=== PATIENT | male | born 1935 | race Caucasian/White ===

== ENCOUNTER 2016-07-25 10:03 | Emergency (ER) | payer MEDICARE ==
[~2016-07-25] VITALS: Ht 182.9 cm; Wt 117.9 kg
[~2016-07-25 10:03] MED LIST: ACET325T9 PO; ASPI-171 PO; DULA1.5P SQ; ESCI10TA PO; FAMO20TA5 PO; METO25TA9 PO; METR500T4 PO; SIMV20TA3 PO; TAMS0.4C2 PO; TRAM100T PO; TRAM50TA PO; VIT1TABL71 PO
[2016-07-25] MEDS ORDERED: TETANUS AND DIPHTHERIA TOX/PF 0.5 ML DISP.SYRIN. VAX IM ONE (11:00)
--- NOTE | 2016-07-25 11:23 | ED.ADGEN ---
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 No loss of consciousness reported. Fall was mechanical per report. Upon arrival, patient is at his baseline mental status, which is alert, engaged , but confused. Patient is following commands. C-collar placed in the emergency department due to an ability to provide history and reliable examination, and presence of distracting injuries on the patient's left forearm, where he has multiple contusions and skin tears noted, some of which are old. Patient also has contusion noted to the right shoulder. Patient is moving all extremities. Noted to have a large contusion with abrasion left lateral for head. Review of Systems Review of Systems Constitutional: Denies fever or chills. [] Eyes: Denies change in visual acuity. [] HENT: Denies nasal congestion or sore throat. [] Respiratory: Denies cough or shortness of breath. [] Cardiovascular: Denies chest pain or edema. [] GI: Denies abdominal pain, nausea, vomiting, bloody stools or diarrhea. [] : Denies dysuria. [] Musculoskeletal: Denies back pain or joint pain. [] Integument: Denies rash. [] Neurologic: Denies focal weakness or sensory changes. [] Complaining of left- sided headache. Endocrine: Denies polyuria or polydipsia. [] Lymphatic: Denies swollen glands. [] Psychiatric: Denies depression or anxiety. [] Current Medications Current Medications Current Medications Medications (Trade) Dose Ordered Sig/Ciro Start Time Stop Time Status Last Admin Dose Admin Tetanus/ Diphtheria Toxoids Adsorbed (Tenivac Syringe) 0.5 ml ONCE ONCE 07/25/16 11:00 07/25/16 11:01 DC 07/25/16 12:25 0.5 ML Allergies Allergies Allergies Coded Allergies Type Severity Reaction Last Updated Verified No Known Medication Allergies Allergy Unknown 06/04/16 Yes Physical Exam Physical Exam Constitutional: Well developed, well nourished, no acute distress, non-toxic appearance. [] HENT: Normocephalic, large contusion with underlying hematoma noted in the left lateral for head region, with 2 small skin tears superficial,, no laceration identified, no hemotympanum, no septal hematoma, bilateral external ears normal , oropharynx moist, no oral exudates, nose normal. [] Eyes: PERRLA, EOMI, conjunctiva normal, no discharge. [] Neck: Normal range of motion, no tenderness, supple, no stridor. C-collar placed , no step-offs or deformities. [] Cardiovascular:Heart rate regular rhythm, no murmur, S1, S2, rubs or gallops. [] Lungs & Thorax: Diminished breath sounds at bases bilaterally, no rhonchi rales or wheezing identified. No chest wall crepitus or tenderness.] Abdomen: Bowel sounds normal, soft, obese, nontender, no rebound, rigidity, no guarding, patient with well-healed surgical incision noted in the right lower quadrant, no tenderness, no masses, no pulsatile masses. [] Skin: Warm, dry, no erythema, no rash. [] Mild excoriation noted on the underside of the scrotum, no evidence of induration or abscess formation. Back: No tenderness, no CVA tenderness. [] Lower second patient's left buttock, 3 cm circumferential decubitus ulcer, with significant areas status post debridement below, packing in place which was removed, with yellow drainage on packing, cavity site is clean, with no additional drainage identified, no surrounding erythema or induration. Extremities: Patient with contusion noted over the right shoulder region, healing, patient with skin tears noted along the left humerus and elbow, and left forearm, which are dressed with impermeable dressing signs yesterday's date , also noted to have contusion with small skin tear over the PIP joint of the fourth and fifth digits of the left hand dorsal aspect, no cyanosis, no clubbing , ROM intact, no edema. [] Neurologic: Alert and engaging, following commands but not answering questions appropriately regarding self and place, at baseline mental status per alf report, normal motor function, normal sensory function, no focal deficits noted. [] Psychologic: Affect normal, judgement normal, mood normal. [] Current Patient Data Vital Signs Vital Signs Date Time Temp Pulse Resp B/P Pulse Ox O2 Delivery O2 Flow Rate FiO2 07/25/16 13:07 80 18 139/76 97 Room Air 07/25/16 10:03 98.3 98.3 Lab Values Laboratory Tests Test 07/25/16 12:20 White Blood Count 10.2x10^3/uL (4.0-11.0) Red Blood Count 3.65x10^6/uL (4.30-5.70) L Hemoglobin 10.8g/dL (13.0-17.5) L Hematocrit 31.0% (39.0-53.0) L Mean Corpuscular Volume 85fL (79-100) Mean Corpuscular Hemoglobin 30pg (25-35) Mean Corpuscular Hemoglobin Concent 35g/dL (31-37) Red Cell Distribution Width 16.0% (11.5-14.5) H Platelet Count 154x10^3/uL (140-400) Neutrophils (%) (Auto) 76% (31-73) H Lymphocytes (%) (Auto) 11% (24-48) L Monocytes (%) (Auto) 12% (0-9) H Eosinophils (%) (Auto) 1% (0-3) Basophils (%) (Auto) 1% (0-3) Neutrophils # (Auto) 7.8x10^3uL (1.8-7.7) H Lymphocytes # (Auto) 1.1x10^3/uL (1.0-4.8) Monocytes # (Auto) 1.2x10^3/uL (0.0-1.1) H Eosinophils # (Auto) 0.1x10^3/uL (0.0-0.7) Basophils # (Auto) 0.1x10^3/uL (0.0-0.2) Prothrombin Time 21.2SEC (11.7-14.0) H Prothrombin Time INR 2.0 (0.8-1.1) H PTT 37SEC (24-38) Sodium Level 137mmol/L (136-145) Potassium Level 4.7mmol/L (3.5-5.1) Chloride Level 100mmol/L (98-107) Carbon Dioxide Level 31mmol/L (21-32) Anion Gap 6 (6-14) Blood Urea Nitrogen 13mg/dL (8-26) Creatinine 0.9mg/dL (0.7-1.3) Estimated GFR (Cockcroft-Gault) 81.2 BUN/Creatinine Ratio 14 (6-20) Glucose Level 139mg/dL (70-99) H Calcium Level 8.8mg/dL (8.5-10.1) Total Bilirubin 1.1mg/dL (0.2-1.0) H Aspartate Amino Transferase (AST) 20U/L (15-37) Alanine Aminotransferase (ALT) 50U/L (16-63) Alkaline Phosphatase 90U/L (46-116) Total Protein 5.9g/dL (6.4-8.2) L Albumin 2.0g/dL (3.4-5.0) L Albumin/Globulin Ratio 0.5 (1.0-1.7) L Laboratory Tests 07/25/16 12:20 Laboratory Tests 07/25/16 12:20 EKG EKG EC: Irregular rhythm, atrial fibrillation, heart rate 83 bpm, QTC of 438 , QRS of 82, left anterior fascicular block noted left axis deviation, contour normality is noted in the anterior septal leads, with mild baseline artifact noted. Abnormal ECG, does not meet STEMI criteria. As interpreted by me. [] Radiology/Procedures Radiology/Procedures [] [facility] [address] [place] [address] IMAGING REPORT Signed PATIENT: WALI ANAND ACCOUNT: [id number] : 1935 LOCATION: ER AGE: 80 SEX: M EXAM STATUS: REG ER ORD. PHYSICIAN: CLAIRE VALIENTE DO REASON: Fall/contusion on anticoagulation PROCEDURE: HEAD AND CERVICAL SPINE WO PQRS Compliance Statement: One or more of the following individualized dose reduction techniques were utilized for this examination: 1. Automated exposure control 2. Adjustment of the mA and/or kV according to patient size 3. Use of iterative reconstruction technique CT of the head without contrast, 07/25/2016: History: Fall, contusion, anticoagulation The ventricles are within normal limits in size. There is no shift of the midline structures. There is no evidence of acute intracranial hemorrhage or mass effect. There is cerebral and cerebellar atrophy. Low density fluid collections over the cerebral convexities appear to represent prominent subarachnoid CSF related to the atrophy rather than chronic subdural fluid collections. A scalp hematoma is noted in the left frontal region. No underlying fracture is evident. IMPRESSION: 1. Moderate cerebral atrophy. 2. No acute intracranial abnormality is detected. CT of the cervical spine without contrast, 07/25/2016: Noncontrast scans were obtained with multiplanar reconstructions produced. There is moderate disc space narrowing and marginal spurring at C6-7, C7-T1 and to a lesser degree at C5-6. There are moderate degenerative changes involving scattered facet joints bilaterally. There is a slight spondylolisthesis at C7-T1 which appears to be due to facet joint arthropathy. No acute fracture is identified. The posterior disc margins in the lower cervical spine are not adequately delineated due to artifacts. No high-grade bony spinal stenosis is seen. IMPRESSION: 1. Moderate multilevel degenerative change. 2. Minimal spondylolisthesis at C7-T1 due to facet joint arthropathy. 3. No acute bony abnormality is detected. DICTATED and SIGNED BY: PADMINI RIVERA MD DATE: 07/25/16 1133 CC: CLAIRE VALIENTE DO; CASSY ROBERTS MD ~ Course & Med Decision Making Course & Med Decision Making Pertinent Labs and Imaging studies reviewed. (See chart for details) CT head and neck obtained, along with x-rays of the pelvis, chest, and left upper extremity. No evidence of acute injury identified on x-rays of wrist, hands, shoulders, patient is ranges elbow without issue, and is no bony point tenderness, so the abnormality identified is chronic, no evidence of acute fracture or other maladies the elbow. 's tetanus was updated in the emergency department. C-collar was cleared. Patient with Steri-Strips applied after thorough cleaning of the skin tears to his forearm, and hand, with good effect. Patient with glue applied to the small skin tears of the left forehead. Patient tolerated without issue. No acute concerning findings identified laboratory studies. I did discuss findings as above and evaluation with Dr. Roberts , patient's primary care provider. At this time the patient is about 6 hours after his initial injury, hematoma on the head is resolving, has been no change in the patient basal middle status, and imaging was negative stated. Dr. Roberts is agreeable with plan to send the patient back to the nursing facility for continued management and monitoring. Patient resting comfortably, at time of transfer back to the nursing facility via EMS. Dragon Disclaimer Dragon Disclaimer This electronic medical record was generated, in whole or in part, using a voice recognition dictation system. Departure Impression: Primary Impression: Head contusion Additional Impressions: Skin tear Fall from wheelchair Disposition: 01 HOME, SELF-CARE Condition: IMPROVED Problem Qualifiers Primary Impression: Head contusion Encounter type: initial encounter Contusion of head detail: scalp Qualified Code: S00.03XA - Contusion of scalp, initial encounter Additional Impressions: Fall from wheelchair Encounter type: initial encounter Qualified Code: W05.0XXA - Fall from non- moving wheelchair, initial encounter CLAIRE VALIENTE DO Jul 25, 2016 11:23
--- NOTE | 2016-07-25 11:44 | RAD ---
PQRS Compliance Statement: One or more of the following individualized dose reduction techniques were utilized for this examination: 1. Automated exposure control 2. Adjustment of the mA and/or kV according to patient size 3. Use of iterative reconstruction technique CT of the head without contrast, 07/25/2016: History: Fall, contusion, anticoagulation The ventricles are within normal limits in size. There is no shift of the midline structures. There is no evidence of acute intracranial hemorrhage or mass effect. There is cerebral and cerebellar atrophy. Low density fluid collections over the cerebral convexities appear to represent prominent subarachnoid CSF related to the atrophy rather than chronic subdural fluid collections. A scalp hematoma is noted in the left frontal region. No underlying fracture is evident. IMPRESSION: 1. Moderate cerebral atrophy. 2. No acute intracranial abnormality is detected. CT of the cervical spine without contrast, 07/25/2016: Noncontrast scans were obtained with multiplanar reconstructions produced. There is moderate disc space narrowing and marginal spurring at C6-7, C7-T1 and to a lesser degree at C5-6. There are moderate degenerative changes involving scattered facet joints bilaterally. There is a slight spondylolisthesis at C7-T1 which appears to be due to facet joint arthropathy. No acute fracture is identified. The posterior disc margins in the lower cervical spine are not adequately delineated due to artifacts. No high-grade bony spinal stenosis is seen. IMPRESSION: 1. Moderate multilevel degenerative change. 2. Minimal spondylolisthesis at C7-T1 due to facet joint arthropathy. 3. No acute bony abnormality is detected.
--- NOTE | 2016-07-25 12:11 | EKG ---
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
--- NOTE | 2016-07-25 12:25 | RAD ---
Left forearm, 2 views, 07/25/2016: History: Fall, pain No acute fracture is identified. There is mild subcutaneous edema. IMPRESSION: No acute bony abnormality is detected.
--- NOTE | 2016-07-25 12:26 | RAD ---
AP pelvis, 07/25/2016: History: Fall, pain The patient is rotated to the left. No fracture or dislocation is identified. There is mild spurring at the hip joints. There are moderate degenerative changes in the lower lumbar spine. IMPRESSION: No acute bony abnormality is detected.
--- NOTE | 2016-07-25 12:28 | RAD ---
Left elbow, 3 views, 07/25/2016: History: Elbow pain, injury There is a subtle cortical discontinuity along the margin of the radial head. No definite underlying fracture line is seen within the radial head. There is no evidence of a joint effusion. There is mild spurring at the elbow joint. IMPRESSION: 1. Slight cortical deformity of the radial head is probably old. An acute nondisplaced fracture is less likely. 2. Mild degenerative change at the elbow.
--- NOTE | 2016-07-25 12:31 | RAD ---
Left hand, 3 views, 07/25/2016: History: Fall, injuries There are moderate hypertrophic degenerative changes at scattered interphalangeal joints, the first MCP joint and the first CMC joint. A small bony fragment at the IP joint of the thumb appears old. No acute fracture or dislocation is identified. IMPRESSION: 1. Moderate degenerative changes. 2. No acute bony abnormality is detected.
--- NOTE | 2016-07-25 12:33 | RAD ---
Portable chest, 07/25/2016: History: Fall, pain Comparison is made to a study from 05/02/2016. A left-sided transvenous pacemaker remains in place with a single lead extending into the right ventricle. The heart is mildly enlarged. There is calcific plaquing of the aorta. The pulmonary vascularity is normal. There is minimal infiltrate laterally in the left lung. The right lung is clear. No significant pleural fluid or pneumothorax is seen. IMPRESSION: 1. Mild cardiomegaly and aortic atherosclerosis. 2. Minimal left lung infiltrate.
--- NOTE | 2016-07-25 12:35 | RAD ---
Bilateral shoulders, 6 views, 07/25/2016: History: Fall, pain The bony structures are demineralized. No acute fracture or dislocation is identified. There are mild degenerative changes bilaterally. IMPRESSION: No acute bony abnormality is detected.
[2016-07-25 12:37] LABS: BASO # 0.1 x10^3/uL (0.0-0.2); BASO % 1 % (0-3); EOS % 1 % (0-3); HEMOGLOBIN 10.8 g/dL (13.0-17.5); LYMPH # 1.1 x10^3/uL (1.0-4.8); LYMPH % 11 % (24-48); MEAN CORPUSCULAR HEMOGLOBIN 30 pg (25-35); MEAN CORPUSCULAR HGB CONC 35 g/dL (31-37); MEAN CORPUSCULAR VOLUME 85 fL (79-100); MONO % 12 % (0-9); NEUT % 76 % (31-73); PLATELET COUNT 154 x10^3/uL (140-400); RED BLOOD COUNT 3.65 x10^6/uL (4.30-5.70); WHITE BLOOD COUNT 10.2 x10^3/uL (4.0-11.0)
[2016-07-25 12:43] LABS: PROTHROMBIN TIME PATIENT 21.2 SEC (11.7-14.0)
[2016-07-25 13:01] LABS: CALCIUM 8.8 mg/dL (8.5-10.1); CREATININE 0.9 mg/dL (0.7-1.3); GFR 81.2; POTASSIUM 4.7 mmol/L (3.5-5.1)
[2016-07-25 13:07] VITALS: BP 139/76
[2016-07-25 13:07] LABS: ALBUMIN/GLOBULIN RATIO 0.5 (1.0-1.7); TOTAL BILIRUBIN 1.1 mg/dL (0.2-1.0); TOTAL PROTEIN 5.9 g/dL (6.4-8.2)
== END 2016-07-25 13:59 | disposition home or self-care (01) ==
LOC: ER 10:03
DX: S61.215A Laceration without foreign body of left ring finger without damage to nail, initial encounter (principal); S61.217A Laceration without foreign body of left little finger without damage to nail, initial encounter; S01.81XA Laceration without foreign body of other part of head, initial encounter; S51.011A Laceration without foreign body of right elbow, initial encounter; S41.011A Laceration without foreign body of right shoulder, initial encounter; S51.812A Laceration without foreign body of left forearm, initial encounter; E03.9 Hypothyroidism, unspecified; E11.9 Type 2 diabetes mellitus without complications; E78.00 Pure hypercholesterolemia, unspecified; F03.90 Unspecified dementia, unspecified severity, without behavioral disturbance, psychotic disturbance, mood disturbance, and anxiety; I10 Essential (primary) hypertension; M19.90 Unspecified osteoarthritis, unspecified site; J44.9 Chronic obstructive pulmonary disease, unspecified; I11.0 Hypertensive heart disease with heart failure; N40.0 Benign prostatic hyperplasia without lower urinary tract symptoms; I51.7 Cardiomegaly; Z95.0 Presence of cardiac pacemaker; I50.9 Heart failure, unspecified; W05.0XXA Fall from non-moving wheelchair, initial encounter; Y93.89 Activity, other specified; Y92.89 Other specified places as the place of occurrence of the external cause; Y99.8 Other external cause status
CPT/HCPCS: 12001; 36415; 70450; 71010; 72125; 72170; 73030; 73080; 73090; 73130; 80053; 85027; 85610; 85730; 90471; 90714; 93005; 99285-25

== ENCOUNTER 2016-07-27 21:06 | Inpatient (IN) | payer MEDICARE ==
[~2016-07-27] VITALS: Ht 175.3 cm; Wt 97.2 kg
[2016-07-27] MEDS ORDERED: IV NORMAL SALINE 500ML BAG 500 ML IV ONE (21:15)
[2016-07-27 21:40] LABS: BASO # 0.1 x10^3/uL (0.0-0.2); BASO % 1 % (0-3); EOS % 2 % (0-3); HEMATOCRIT 27.7 % (39.0-53.0); HEMOGLOBIN 9.7 g/dL (13.0-17.5); LYMPH # 2.1 x10^3/uL (1.0-4.8); LYMPH % 25 % (24-48); MEAN CORPUSCULAR HEMOGLOBIN 30 pg (25-35); MEAN CORPUSCULAR HGB CONC 35 g/dL (31-37); MEAN CORPUSCULAR VOLUME 85 fL (79-100); MONO % 16 % (0-9); NEUT % 57 % (31-73); PLATELET COUNT 170 x10^3/uL (140-400); RED BLOOD COUNT 3.26 x10^6/uL (4.30-5.70); RED CELL DISTRIBUTION WIDTH 16.1 % (11.5-14.5); WHITE BLOOD COUNT 8.6 x10^3/uL (4.0-11.0)
[2016-07-27 21:48] LABS: INR 1.6 (0.8-1.1); PROTHROMBIN TIME PATIENT 18.4 SEC (11.7-14.0)
[2016-07-27 21:58] LABS: CALCIUM 8.7 mg/dL (8.5-10.1); CREATININE 0.9 mg/dL (0.7-1.3); GFR 81.2; POTASSIUM 4.5 mmol/L (3.5-5.1)
[2016-07-27] MEDS ORDERED: LEVOFLOXACIN PER PHARMACY MC PRN (22:00)
[2016-07-27] MEDS ORDERED: PIP/TAZO PER PHARMACY MC PRN (22:00)
[2016-07-27 22:03] LABS: ALBUMIN 1.9 g/dL (3.4-5.0); DIRECT BILIRUBIN 0.3 mg/dL (0.0-0.2); MAGNESIUM 1.9 mg/dL (1.8-2.4); TOTAL BILIRUBIN 1.2 mg/dL (0.2-1.0); TOTAL PROTEIN 5.3 g/dL (6.4-8.2)
--- NOTE | 2016-07-27 22:04 | PHYS DOC ---
Past Medical History Past Medical History: Arthritis, CHF, COPD, Dementia, Diabetes-Type II, High Cholesterol, Hypertension, Hypothyroid, Renal Disease, Other Additional Past Medical Histor: PRESSURE ULCER L BUTTOCK, SICK SINUS, BPH Past Surgical History: Other Additional Past Surgical Histo: UNKNOWN Alcohol Use: None Drug Use: None Adult General Chief Complaint Chief Complaint: ALTERED MENTAL STATUS HPI HPI Patient is a 80 year old male who presents by EMS for altered mental status. Nursing facility notes he is usually verbal and oriented to self at baseline, and has become nonverbal recently. EMS noticed he was oxygenating in the 70s at room air. They placed him on nonrebreather to improve his O2 sats. EMS states he has improved mentation since placing him on oxygen and is now moving extremities spontaneously, but still without purpose. The patient does not talk or add to the history. Of note, he was seen here 2 days ago for a fall and had multiple images and then was discharged back to his nursing facility. Review of Systems Review of Systems Unable to obtain secondary to altered mental status Current Medications Current Medications Current Medications Medications (Trade) Dose Ordered Sig/Ciro Start Time Stop Time Status Last Admin Dose Admin Levofloxacin/ Dextrose (Levaquin Per Pharmacy) 1 each PRN DAILY PRN 07/27/16 22:00 Piperacillin Sod/ Tazobactam Sod (Zosyn Per Pharmacy) 1 each PRN DAILY PRN 07/27/16 22:00 Sodium Chloride (Iv Sodium Chloride 0.9% 500ml Bag) 500 ml @ 500 mls/hr 1X ONCE 07/27/16 21:15 07/27/16 22:14 DC 07/27/16 21:22 500 MLS/HR Allergies Allergies Allergies Coded Allergies Type Severity Reaction Last Updated Verified No Known Medication Allergies Allergy Unknown 06/04/16 Yes Physical Exam Physical Exam Constitutional: Well developed, well nourished, moderate distress, non-toxic appearance. [] HENT: Normocephalic, atraumatic, bilateral external ears normal, oropharynx moist, no oral exudates, nose normal. [] Eyes: PERRLA, EOMI, conjunctiva normal, no discharge. [] Neck: Normal range of motion, no tenderness, supple, no stridor. [] Cardiovascular:Heart rate regular rhythm [] Lungs & Thorax: Bilateral breath sounds clear to auscultation and equal [] Abdomen: Bowel sounds normal, soft, no tenderness. [] Skin: Warm, dry, no erythema, no rash. [] Back: No tenderness, no CVA tenderness. [] Extremities: No tenderness, ROM intact, no edema. [] Neurologic: Does not speak or make noise, opens eyes to pain, localizes pain and has some spontaneous movement of upper extremities. [] Psychologic: Unable to assess secondary to altered mental status. [] Current Patient Data Vital Signs Vital Signs Date Time Temp Pulse Resp B/P Pulse Ox O2 Delivery O2 Flow Rate FiO2 07/27/16 22:00 80 35 130/63 100 NonRebreather Mask 15 07/27/16 21:22 97.7 97.7 Lab Values Laboratory Tests Test 07/27/16 21:16 07/27/16 21:58 White Blood Count 8.6x10^3/uL (4.0-11.0) Red Blood Count 3.26x10^6/uL (4.30-5.70) L Hemoglobin 9.7g/dL (13.0-17.5) L Hematocrit 27.7% (39.0-53.0) L Mean Corpuscular Volume 85fL (79-100) Mean Corpuscular Hemoglobin 30pg (25-35) Mean Corpuscular Hemoglobin Concent 35g/dL (31-37) Red Cell Distribution Width 16.1% (11.5-14.5) H Platelet Count 170x10^3/uL (140-400) Neutrophils (%) (Auto) 57% (31-73) Lymphocytes (%) (Auto) 25% (24-48) Monocytes (%) (Auto) 16% (0-9) H Eosinophils (%) (Auto) 2% (0-3) Basophils (%) (Auto) 1% (0-3) Neutrophils # (Auto) 4.9x10^3uL (1.8-7.7) Lymphocytes # (Auto) 2.1x10^3/uL (1.0-4.8) Monocytes # (Auto) 1.3x10^3/uL (0.0-1.1) H Eosinophils # (Auto) 0.2x10^3/uL (0.0-0.7) Basophils # (Auto) 0.1x10^3/uL (0.0-0.2) Prothrombin Time 18.4SEC (11.7-14.0) H Prothrombin Time INR 1.6 (0.8-1.1) H PTT 41SEC (24-38) H Sodium Level 139mmol/L (136-145) Potassium Level 4.5mmol/L (3.5-5.1) Chloride Level 102mmol/L (98-107) Carbon Dioxide Level 30mmol/L (21-32) Anion Gap 7 (6-14) Blood Urea Nitrogen 14mg/dL (8-26) Creatinine 0.9mg/dL (0.7-1.3) Estimated GFR (Cockcroft-Gault) 81.2 Glucose Level 109mg/dL (70-99) H Lactic Acid Level 1.8mmol/L (0.4-2.0) Calcium Level 8.7mg/dL (8.5-10.1) Magnesium Level 1.9mg/dL (1.8-2.4) Total Bilirubin 1.2mg/dL (0.2-1.0) H Direct Bilirubin 0.3mg/dL (0.0-0.2) H Aspartate Amino Transferase (AST) 24U/L (15-37) Alanine Aminotransferase (ALT) 38U/L (16-63) Alkaline Phosphatase 81U/L (46-116) Ammonia 28mcmol/L (11-34) Creatine Kinase 32U/L (39-308) L Troponin I Quantitative 0.048ng/mL (0.000-0.055) PW-Mjb-G-Type Natriuretic Peptide 3536pg/mL (0-449) H Total Protein 5.3g/dL (6.4-8.2) L Albumin 1.9g/dL (3.4-5.0) L Urine Collection Type U cath Urine Color Yellow Urine Clarity Cloudy Urine pH 6.0 Urine Specific [place] 1.015 Urine Protein 100mg/dL (NEG-TRACE) Urine Glucose (UA) Negativemg/dL (NEG) Urine Ketones (Stick) Negativemg/dL (NEG) Urine Blood Large (NEG) Urine Nitrite Negative (NEG) Urine Bilirubin Negative (NEG) Urine Urobilinogen Dipstick 0.2mg/dL (0.2 mg/dL) Urine Leukocyte Esterase Large (NEG) Urine RBC 20-40/HPF (0-2) Urine WBC >40/HPF (0-4) Urine Squamous Epithelial Cells None/LPF Urine Transitional Epithelial Cells Occ/LPF Urine Bacteria Few/HPF (0-FEW) Urine Mucus Mod/LPF Urine Yeast Present/HPF Laboratory Tests 07/27/16 21:16 Laboratory Tests 07/27/16 21:16 EKG EKG EKG as interpreted by me as atrial fibrillation, rate 84, no ST-T changes Radiology/Procedures Radiology/Procedures Chest x-ray as interpreted by me as left mid lung infiltrate concerning for pneumonia Head CT without contrast IMPRESSION: Some motion artifact is present. Otherwise, no acute intracranial blood products or change from prior exam is seen. Electronically signed by: Chel Thayer (Jul 27, 2016 22:33:55) Course & Med Decision Making Course & Med Decision Making Pertinent Labs and Imaging studies reviewed. (See chart for details) Laboratory evaluation largely unremarkable other than urinalysis showing yeast and signs of infection. Chest xray today has worsening of left lung infiltrate. Will treat with broad-spectrum antibiotics for healthcare associated pneumonia. Discussed case with Dr. Abbott, who will admit. Dragon Disclaimer Dragon Disclaimer This electronic medical record was generated, in whole or in part, using a voice recognition dictation system. Departure Departure Impression: Primary Impression: Acute hypoxemic respiratory failure Additional Impression: Healthcare-associated pneumonia Disposition: ADMITTED INPATIENT Condition: CRITICAL Referrals: CASSY ABBOTT MD (PCP) Problem Qualifiers Sarahi MONTEZ MD Jul 27, 2016 22:04
[2016-07-27 22:12] LABS: BILIRUBIN,URINE NEGATIVE (NEG); GLUCOSE,URINE NEGATIVE (NEG); NITRITE,URINE NEGATIVE (NEG); PROTEIN,URINE 100 mg/dL (NEG-TRACE); UROBILINOGEN,URINE 0.2 mg/dL (0.2 mg/dL)
[2016-07-27] MEDS ORDERED: FENTANYL PF 100 MCG/2 ML VIAL. IV PRN (22:15)
[2016-07-27] MEDS ORDERED: ONDANSETRON PF 4 MG/2 ML VIAL. IV PRN (22:15)
[2016-07-27] MEDS ORDERED: ACETAMINOPHEN 325 MG TABLET. PO PRN (22:15)
[2016-07-27 22:25] LABS: BACTERIA,URINE FEW /HPF (0-FEW); RBC,URINE 20-40 /HPF (0-2); WBC,URINE >40 /HPF (0-4)
[2016-07-27 22:26] LABS: YEAST,URINE PRESENT /HPF
[2016-07-27] MEDS ORDERED: VANCOMYCIN 2 GM in IV NORMAL SALINE 500ML BAG 500 ML IV ONE (22:30)
--- NOTE | 2016-07-27 22:35 | RAD ---
INDICATION: 80-year-old male with altered mental status, fell 2 days ago, on blood thinners. COMPARISON: July 25, 2016, images only. TECHNIQUE: Axial, noncontrast CT images obtained through the head. One or more of the following individualized dose reduction techniques were utilized for this examination: 1. Automated exposure control; 2. Adjustment of the mA and/or kV according to patient size; 3. Use of iterative reconstruction technique. FINDINGS: There is some patient motion motion artifact. No interval acute intracranial changes seen. Prominence of the extra-axial space anterior to the cerebellar hemispheres appears similar to the recent CT exam, with Hounsfield units suggestive of CSF rather than chronic subdural blood. No interval acute blood products are seen. No midline shift, mass effect or extra-axial fluid collections is seen. Ventricles and sulci appear appropriate for patient's age. Basilar cisterns are maintained. The visualized paranasal sinuses are clear. Mastoid air cells are clear. No calvarial fracture is present. Soft tissue swelling of the inferior left frontal scalp re- demonstrated. IMPRESSION: Some motion artifact is present. Otherwise, no acute intracranial blood products or change from prior exam is seen. Electronically signed by: Chel Thayer (Jul 27, 2016 22:33:55)
[2016-07-27] MEDS: VANCOMYCIN PER PHARMACY MC PRN (23:55)
[2016-07-28] VITALS (18 sets, daily range): BP systolic 80–152; BP diastolic 36–78
[2016-07-28] MEDS: PIPERACILLIN/TAZOBACTAM 4.5 GM in IV NORMAL SALINE 100ML 100 ML IV SCH ×5 (01:36→23:39)
[2016-07-28] MEDS ORDERED: FOLI0.8T3 PO (01:43)
[2016-07-28] MEDS ORDERED: ASCO500T2 PO (01:43)
[2016-07-28] MEDS ORDERED: DEXT38GE2 PO (01:43)
[2016-07-28] MEDS ORDERED: OXYC10SY PO (01:43)
[2016-07-28] MEDS ORDERED: MAGN500C11 PO (01:43)
[2016-07-28] MEDS ORDERED: ATOR10TA60 PO (01:43)
[2016-07-28] MEDS ORDERED: ESCI20TA PO (01:43)
[2016-07-28] MEDS ORDERED: MELA1TAB13 PO (01:43)
[2016-07-28] MEDS ORDERED: [UNRECOGNIZED DRUG - OTHER] PO (01:43)
[2016-07-28] MEDS ORDERED: INSU200I SQ (01:43)
[2016-07-28] MEDS ORDERED: HALO0.5T PO (01:43)
[2016-07-28] MEDS ORDERED: LACT1CAP2 PO (01:43)
[2016-07-28] MEDS ORDERED: RIVA1.5C4 PO (01:43)
[2016-07-28] MEDS ORDERED: APIX5TAB PO (01:43)
[2016-07-28] MEDS ORDERED: SUCR1TAB PO (01:43)
[2016-07-28] MEDS ORDERED: FERR325T20 PO (01:43)
[2016-07-28 01:49] LABS: OBC FLU VALID
--- NOTE | 2016-07-28 08:08 | RAD ---
Portable chest, 07/27/2016: History: Altered mental status Comparison is made to a study from 07/25/2016. The heart is mildly enlarged. There is calcific plaquing of the aorta. The pulmonary vascularity is normal. Infiltrate in the lateral aspect of the left lung appears to have worsened slightly. The left hemidiaphragm was not completely included on this exam. No right lung infiltrate is seen. IMPRESSION: 1. Cardiomegaly and aortic atherosclerosis. 2. Worsening left lung infiltrates suggesting pneumonia.
[2016-07-28] MEDS: VANCOMYCIN PER PHARMACY MC PRN (09:09)
[2016-07-28] MEDS: VANCOMYCIN 1.5 GM in IV NORMAL SALINE 500ML BAG 500 ML IV SCH ×2 (11:05→23:35)
--- NOTE | 2016-07-28 13:46 | HP ---
ADMIT DATE: 07/28/2016 HISTORY OF PRESENT ILLNESS: The patient is an 80-year-old male patient, a resident at [facility] was noted yesterday by the nursing staff there to be unresponsive, encephalopathic and given the fact that he fell prior to that a few days before that and was on Eliquis. I was concerned that he might have intracranial bleed and I recommended that the patient should be transferred immediately to the Emergency Room. Apparently he was evaluated. CT scan was unremarkable and has not really changed from previous CT scan done a few days ago; however, his x-ray showed that he has left lower lobe pneumonia and was admitted for treatment of healthcare-associated pneumonia, was started on vancomycin, Zosyn as well as levofloxacin. According to the ER physician, the patient when arrived here was nonverbal and was very confused, was also extremely hypoxemic with oxygen saturation of only 70% at room air. He was placed on a nonrebreather mask and by the time he arrived here, his mentation has improved and was able to move his extremities spontaneously, although he is mostly bed bound. He was confused and was not able to give any useful history. In fact, he was seen in the Emergency Room, only 2 days ago after a fall, had multiple bruises over the left forehead. However, his CT scan was unremarkable. PAST MEDICAL HISTORY: Significant for atrial fibrillation, sick sinus syndrome, status post permanent pacemaker placement. He is known to have hypertension, hyperlipidemia, hypothyroidism, diastolic congestive heart failure, chronic obstructive pulmonary disease, chronic kidney disease, benign prostatic hypertrophy with ____, prostate cancer, type 2 diabetes. 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 PAST SURGICAL HISTORY: Significant for bilateral cataract extraction, transurethral resection of prostate, left inguinal hernia repair, appendectomy and permanent pacemaker placement and surgical debridement of his left gluteal decubitus ulcer. He has also had deep vein thrombosis involving his right upper extremity for which he is on Eliquis and has had recurrent syncopal episode extensively investigated at [facility] without any outcome. FAMILY HISTORY: Noncontributory. SOCIAL HISTORY: He is ; however, he has been on various institutions for almost 4 months now. In fact, he was initially at [facility] who was seen here at [facility], transferred to [facility] and from there to [facility] in [place] and finally to [facility] and from where he was transferred to [facility]. He used to smoke cigars, but does not drink alcohol or use any recreational drugs. 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 ALLERGIES: He has no known drug allergies. MEDICATIONS: He is currently on following medications: He is on Tylenol 650 mg every 4 hours, apixaban 5 mg twice a day, ascorbic acid 500 mg once a day, atorvastatin calcium ____ mg once a day. He is on citalopram 20 mg once a day, multivitamin with mineral 1 tablet once a day, ferrous sulfate 325 mg once a day, haloperidol 0.5 mg twice a day. He is on Humalog insulin as per insulin sliding scale, lactobacillus acidophilus 1 tablet once a day, magnesium oxide 400 mg twice a day, Melatonin/Pyridoxine 1 tablet once a day, metoprolol succinate 25 mg once a day, oxycodone 5 mg every 4 hours, rivastigmine 1.5 mg daily, sucralfate 1 gram 4 times a day, Flomax 0.4 mg at bedtime. PHYSICAL EXAMINATION: GENERAL: On arrival to the Emergency Room, he apparently was extremely confused, nonverbal, pale, but no jaundice, cyanosis or thyromegaly. No jugular venous distention. No limb edema. VITAL SIGNS: His heart rate was 88, blood pressure 133/67, temperature was 97.7, respiratory rate 22, and oxygen saturation was 94% on 15 liters of oxygen by nonrebreather mask. HEAD, EYES, EAR, NOSE AND THROAT: Showed normocephalic, atraumatic. NECK: Supple. HEART: Showed normal first and second heart sounds. No gallop, rub or murmur. CHEST: Clear to auscultation. No crepitation or rhonchi. ABDOMEN: Distended, soft, nontender. No guarding or rigidity. No organomegaly. Hernial orifices intact. Bowel sounds normal. NEUROLOGIC: He was awake, alert, but nonverbal, has what seems to be myoclonic jerks. All his cranial nerves seem to be intact. He moves his upper extremities to much good extent than his lower extremities as he has severe osteoarthritis of both knee joints. In the right hip joint, he has a large stage 4 left gluteal decubitus ulcer, covered with wound VAC and assisted closure device. He has an indwelling Acosta catheter. LABORATORY DATA: In the Emergency Room showed a white cell count of 8600, hemoglobin 9.7, hematocrit 27.7, MCV 85 and platelet count of 170,000. Serum sodium was 139, potassium 4.5, chloride 102, bicarbonate 30, anion gap of 7, BUN 14, creatinine 0.9, estimated GFR was 81. Glucose 109. Lactic acid was only 1.8, calcium was 8.7, and magnesium was 1.9. Total bilirubin, AST, ALT, alkaline phosphatase were normal. CK was only 32. Beta natriuretic peptide was 3536. Total protein was 5.3, albumin was 1.9. His troponin was slightly elevated at 0.048. He has had a CT scan of the head showed no acute intracranial blood products. It will changes from prior exam, is seen his chest x-ray showed that he has cardiomegaly and aortic atherosclerosis worsening left lung infiltrate suggesting pneumonia. The patient was admitted with altered mental status and marked hypoxemia and healthcare-associated pneumonia. He was started on IV antibiotic in the form of vancomycin, Levaquin, and Zosyn given that he has altered mental status, probably keep him n.p.o., start him on IV fluid and will arrange for him to be seen by the speech therapist to see whether he would be able to eat and drink. The patient has deteriorated physically and mentally for over the last 4 months and I will consult the palliative care team to discuss with the family the option of palliative care and hospice care CASSY ABBOTT MD DR: MINA/agustin JOB#: [id number] / [id number]
--- NOTE | 2016-07-28 14:17 | EKG ---
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 LEFTWARD AXIS QRS(T) CONTOUR ABNORMALITY CONSISTENT WITH SEPTAL INFARCT AGE UNDETERMINED RI6.01 Unconfirmed report Electronically Signed On 08-05-2016 10:18:11 ACCESS CONTROL OFFICER by Denver Munguia
[2016-07-29] VITALS (9 sets, daily range): BP systolic 113–163; BP diastolic 59–86
--- NOTE | 2016-07-29 02:13 | PN ---
DATE: 07/28/2016 SUBJECTIVE: The patient is resting, slightly propped up in bed, in no apparent distress. He continued to be somewhat encephalopathic, mostly nonverbal, has what seemed to be myoclonic jerks. PHYSICAL EXAMINATION: GENERAL: When I examined him, he looked pale, but no jaundice, cyanosis, or thyromegaly. No jugular venous distention. No limb edema. VITAL SIGNS: His heart rate was 80, blood pressure was 130/63, temperature was 97.7, respiratory rate 22, and oxygen saturation was 100% on 15 liters of oxygen by nasal cannula. In fact, he is only on 2 liters of oxygen by nasal cannula. HEAD, EYES, EARS, NOSE AND THROAT: Showed normocephalic, atraumatic. NECK: Supple. HEART: Showed normal first and second heart sounds with no gallop, rub or murmur. CHEST: Clear to auscultation. No crepitation or rhonchi. ABDOMEN: Distended, soft, nontender. No guarding or rigidity. No organomegaly. All hernial orifices intact. Bowel sounds normal. NEUROLOGIC: He was definitely encephalopathic. He is awake, alert, but very confused and all his cranial nerves, however, were intact. EXTREMITIES: He moves his upper extremities to a much greater extent than his lower extremities as he has severe osteoarthritis of both knee joints and right hip joint. He has left gluteal stage 4 decubitus ulcer covered with wound vacuum assisted closure device. His intake was 600, output was 450. LABORATORY DATA: No lab work is available today. ASSESSMENT: 1. Metabolic toxic encephalopathy. 2. Healthcare-associated pneumonia involving left lower lobe. 3. Rapid deterioration in cognition that has worsened over the last 4 months. 4. The patient is known to have hypertension, hyperlipidemia, diastolic congestive heart failure, atrial fibrillation with sick sinus syndrome, status post permanent pacemaker. The patient has right upper extremity deep venous thrombosis for which he is on Eliquis, severe osteoarthritis of both knee joints and right hip joint with poor mobility. The patient is bedbound, chair bound, has left stage 4 gluteal decubitus ulcer covered with wound vacuum assisted closure device. Overall, the patient's condition has deteriorated dramatically. PLAN: I will consult the palliative care team to discuss with the family the option of hospice care. CASSY ABBOTT MD DR: Mert JOB#: [id number] / [id number]
[2016-07-29 04:53] LABS: BASO # 0.1 x10^3/uL (0.0-0.2); BASO % 1 % (0-3); EOS % 2 % (0-3); HEMATOCRIT 25.6 % (39.0-53.0); HEMOGLOBIN 8.7 g/dL (13.0-17.5); LYMPH # 0.9 x10^3/uL (1.0-4.8); LYMPH % 14 % (24-48); MEAN CORPUSCULAR HEMOGLOBIN 30 pg (25-35); MEAN CORPUSCULAR HGB CONC 34 g/dL (31-37); MEAN CORPUSCULAR VOLUME 88 fL (79-100); MONO % 14 % (0-9); NEUT % 69 % (31-73); PLATELET COUNT 134 x10^3/uL (140-400); RED BLOOD COUNT 2.92 x10^6/uL (4.30-5.70); RED CELL DISTRIBUTION WIDTH 16.4 % (11.5-14.5); WHITE BLOOD COUNT 6.3 x10^3/uL (4.0-11.0)
[2016-07-29 05:09] LABS: ALBUMIN 1.6 g/dL (3.4-5.0); ALBUMIN/GLOBULIN RATIO 0.5 (1.0-1.7); CALCIUM 8.4 mg/dL (8.5-10.1); GFR 71.9; POTASSIUM 3.6 mmol/L (3.5-5.1); TOTAL BILIRUBIN 1.2 mg/dL (0.2-1.0); TOTAL PROTEIN 5.1 g/dL (6.4-8.2)
[2016-07-29] MEDS: PIPERACILLIN/TAZOBACTAM 4.5 GM in IV NORMAL SALINE 100ML 100 ML IV SCH ×3 (06:03→21:04)
[2016-07-29] MEDS: VANCOMYCIN PER PHARMACY MC PRN ×2 (08:37→11:03)
[2016-07-29] MEDS: VANCOMYCIN 1.5 GM in IV NORMAL SALINE 500ML BAG 500 ML IV SCH (10:30)
--- NOTE | 2016-07-29 14:33 | PDOC2 ---
PALLIATIVE CARE Palliative Care Note Palliative Care Consult requested by Dr. Roberts to address goals of care. Diagnosis: pneumonia, CKD-improved; Stage IV wounds--wound vac in place. Overall decline last several months. Failed Swallow Evaluation; Alb .1.6 Patient awakens easily. Confused. Spoke with son David. Plan family meeting tomorrow at 11 am of brother are able to attend LILIA RIDLEY Jul 29, 2016 14:32
[2016-07-29] MEDS: VANCOMYCIN 1.25 GM in IV NORMAL SALINE 250ML 250 ML IV SCH (17:27)
[2016-07-30] MEDS: PIPERACILLIN/TAZOBACTAM 4.5 GM in IV NORMAL SALINE 100ML 100 ML IV SCH ×4 (00:36→17:11)
[2016-07-30] MEDS: VANCOMYCIN 1.25 GM in IV NORMAL SALINE 250ML 250 ML IV SCH ×2 (01:22→14:33)
--- NOTE | 2016-07-30 02:21 | PN ---
DATE: 07/29/2016 SUBJECTIVE: The patient is resting, slightly propped up in bed, no apparent distress. He continued to be extremely confused, disoriented. OBJECTIVE: GENERAL: On examining him, he looked pale, but not jaundiced, cyanosis or thyromegaly. No jugular venous distention. No limb edema. VITAL SIGNS: His heart rate was 95, blood pressure was 128/69, temperature was 98.1, respiratory rate was 18 and oxygen saturation was 100% on 2 liters of oxygen by nasal cannula. HEAD, EYES, EARS, NOSE AND THROAT: Showed normocephalic, atraumatic. NECK: Supple. HEART: Showed normal first and second heart sounds. No gallop, rub or murmur. CHEST: Clear to auscultation. No crepitation or rhonchi. ABDOMEN: Distended, soft, nontender. No guarding or rigidity. No organomegaly. Hernial orifices intact. Bowel sounds normal. NEUROLOGIC: He was extremely confused, disoriented; however, has no obvious lateralizing sign. His cranial nerves are intact, moves upper extremities to much greater extent than his lower extremities, has severe bilateral knee osteoarthritis. He has also severe osteoarthritis of the right hip joint. He is mostly bed bound and chair bound, has stage IV left gluteal decubitus ulcer. His intake over the last 24 hours was 900, output was 1525. LABORATORY DATA: His lab work this morning showed a white cell count of 6300, hemoglobin 8.7, hematocrit 25.6, MCV 88 and platelet count of 134,000. His serum sodium was 144, potassium 3.6, chloride 108, bicarbonate 28, anion gap of 8, BUN 9, creatinine 1, estimated GFR was 72 mL per minute. His glucose 73, calcium was 8.4. Total bilirubin, AST, ALT, alkaline phosphatase were normal. Ammonia was 28. Total protein was 5.1, albumin was 1.6. TSH is normal at 2.77. His prothrombin time was 18.4, INR 1.6, APTT 41. His influenza A and B were negative. ASSESSMENT: 1. Metabolic toxic encephalopathy. 2. Healthcare-associated pneumonia involving left lower lobe. 3. Rapid deterioration in his cognitive abilities has worsened over the last 4 months. 4. Hypertension. 5. Hyperlipidemia. 6. Diastolic congestive heart failure. 7. Atrial fibrillation with sick sinus syndrome, status post permanent pacemaker. 8. Right upper extremity deep venous thrombosis for which he is on Eliquis. 9. Severe osteoarthritis of both knee joints, right hip joint with . 10. Stage IV left gluteal decubitus ulcer. PLAN: To continue with IV antibiotic. I have already spoken with the palliative care team and the plan is talk to the family regarding his palliative care and hospice care. CASSY ABBOTT MD DR: MINA/agustin JOB#: [id number] / [id number]
[2016-07-30 03:00] VITALS: BP 128/68
[2016-07-30 06:06] LABS: BASO % 1 % (0-3); EOS % 1 % (0-3); HEMOGLOBIN 8.7 g/dL (13.0-17.5); LYMPH # 0.9 x10^3/uL (1.0-4.8); LYMPH % 13 % (24-48); MEAN CORPUSCULAR HEMOGLOBIN 30 pg (25-35); MEAN CORPUSCULAR HGB CONC 35 g/dL (31-37); MEAN CORPUSCULAR VOLUME 85 fL (79-100); MONO % 14 % (0-9); NEUT % 71 % (31-73); PLATELET COUNT 151 x10^3/uL (140-400); RED BLOOD COUNT 2.94 x10^6/uL (4.30-5.70); RED CELL DISTRIBUTION WIDTH 16.4 % (11.5-14.5); WHITE BLOOD COUNT 7.1 x10^3/uL (4.0-11.0)
[2016-07-30 06:10] LABS: CALCIUM 8.3 mg/dL (8.5-10.1); GFR 71.9; POTASSIUM 3.3 mmol/L (3.5-5.1)
[2016-07-30 07:00] VITALS: BP 139/69
[2016-07-30 11:00] VITALS: BP 116/74
[2016-07-30] MEDS: POTASSIUM CHLORIDE 20 MEQ TABLET.ER. PO SCH ×2 (12:30→18:22)
--- NOTE | 2016-07-30 12:55 | PDOC2 ---
PALLIATIVE CARE Palliative Care Note Palliative Care Met with sons David Ni, and Homer. Patient's unable to attend meeting. Patient more alert today. Received permission from patient to have meeting then update Reviewed medical condition with family. pneumonia, pacemaker; CKD --improved; Stage IV wound --wound vac in place. Patient was active--outside on [employer] in Mar 2016. Shortly after this patient fell out of bed. Having problems with knees. 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 Always an independent man--never asking for help. Has been in several health care facilities in last 4 months. Physically and emotionally declining. Sons shared that patient has a significant family history of depression-- parents; brother Patient's brother 1 month ago --also lost another brother in last year Concern that patient may also have some depression. has had poor appetite. Not wanting to eat. Asked his son to "just shoot me" at one time. Discussed options for care; Continue current aggressive care. vs comfort care vs trial of aggressive care with comfort if patient does not improve. Sons see marked improvement in last 24-36 hours.--patient more awake. conversing with them and showing some desire to get better. Family would like to continue with aggressive care ---if no improvement change to comfort. This was discussed with patient as well. With recent history of dysphagia --feeding tube was discussed. No decision was made by sons. Patient did pass swallow eval last night. With protien level extemely low --Albumin level 1.6 and severe wounds patient will need supplements and encouragement to eat. Code Status: DNR/DNI; [facility] completed. Will need physician signature. Family would like patient to go to [facility]---no returning to [facility]. Plan: Continue current treatment plan. Re-evaluate as needed. PT/OT DNR/DNI LILIA RIDLEY Jul 30, 2016 12:54
[2016-07-30] MEDS: VANCOMYCIN PER PHARMACY MC PRN (13:53)
[2016-07-30 15:00] VITALS: BP 140/73
[2016-07-30 19:00] VITALS: BP 127/67
[2016-07-30 22:00] VITALS: BP 130/65
[2016-07-31] MEDS: PIPERACILLIN/TAZOBACTAM 4.5 GM in IV NORMAL SALINE 100ML 100 ML IV SCH ×4 (00:25→16:30)
[2016-07-31] MEDS: VANCOMYCIN 1.25 GM in IV NORMAL SALINE 250ML 250 ML IV SCH (01:58)
[2016-07-31 02:54] VITALS: BP 147/91
[2016-07-31 04:52] LABS: CALCIUM 8.2 mg/dL (8.5-10.1); GFR 71.9; POTASSIUM 3.4 mmol/L (3.5-5.1)
[2016-07-31 07:03] VITALS: BP 142/87
[2016-07-31] MEDS: POTASSIUM CHLORIDE 20 MEQ TABLET.ER. PO SCH (08:00)
--- NOTE | 2016-07-31 09:14 | PN ---
DATE: 07/30/2016 SUBJECTIVE: The patient is resting, slightly propped up in bed, in no apparent respiratory distress. He is awake, alert, but continues to be confused, tremulous. Denied any complaint. The nursing staff did not voice any concern. OBJECTIVE: GENERAL: When I examined him, he looked pale, but no jaundice, cyanosis or thyromegaly. No jugular venous distention. No limb edema. VITAL SIGNS: His heart rate was 103, blood pressure was 139/69, temperature was 97.7, respiratory rate was 24, and oxygen saturation was 96%. HEAD, EYES, EARS, NOSE AND THROAT: Normocephalic, atraumatic. NECK: Supple. HEART: Showed normal first and second sounds. No gallop, rub or murmur. CHEST: Clear to auscultation. No crepitation or rhonchi. ABDOMEN: Distended, soft, nontender. No guarding or rigidity. No organomegaly. Hernial orifices intact. Bowel sounds normal. NEUROLOGIC: He is somewhat more awake today; however, he continued to be extremely confused. All his cranial nerves are intact, he moves upper extremities to much good extent than lower extremities as he is mostly bed bound and chair bound. He has severe osteoarthritis of both knee joints of the right hip joint. He has also an indwelling Acosta catheter. He has left stage IV gluteal decubitus ulcer covered with wound vacuum assisted closure device. His intake was 900, output was 1525. LABORATORY DATA: This morning showed a serum sodium 146, potassium 3.3, chloride 110, bicarbonate 25, anion gap of 11, BUN 9, creatinine 1, estimated GFR was 72 mL/minute. His glucose 121, calcium was 8.3. His white cell count was 7100, hemoglobin was 9, hematocrit 25, MCV 85 and platelet count 251,000. ASSESSMENT: 1. Altered mental status, most likely due to metabolic toxic encephalopathy. 2. Healthcare-associated pneumonia involving the left lower lobe for which he is now on triple antibiotic. 3. Rapid deterioration in his cognitive abilities that has worsened over the last 4 months. 4. Hypertension. 5. Hyperlipidemia. 6. Diastolic congestive heart failure. 7. Atrial fibrillation, sick sinus syndrome, status post permanent pacemaker. 8. Right upper extremity deep vein thrombosis for which he is on Eliquis. 9. Severe osteoarthritis of both knee joints in the right hip joint. 10. Stage IV left gluteal decubitus ulcer. PLAN: To continue with IV antibiotic. He is more awake now, so he is back on his oral diet. His potassium is low. I start him on potassium chloride 3 times a day. We need to push fluid and await ____ meeting between his family and the palliative care team. As is clearly has not really been progressing and probably ____ on hospice care. CASSY ABBOTT MD DR: MINA/agustin JOB#: [id number] / [id number]
[2016-07-31] MEDS ORDERED: DEXTROSE ORAL GEL 15 GM TUBE. PO PRN (10:30)
[2016-07-31] MEDS ORDERED: OXYCODONE IR 5 MG TABLET. PO PRN (10:30)
[2016-07-31] MEDS ORDERED: ACETAMINOPHEN 325 MG TABLET. PO PRN (10:30)
[2016-07-31] MEDS ORDERED: ACETAMINOPHEN 500 MG TABLET PO PRN (10:45)
[2016-07-31 11:02] VITALS: BP 127/52
[2016-07-31] MEDS: FOLIC/VIT B COMP W-C (RENAL) TABLET. PO SCH (12:34)
[2016-07-31] MEDS: MAGNESIUM OXIDE 400 MG TABLET PO SCH (12:35)
[2016-07-31] MEDS: ASCORBIC ACID 500 MG TABLET PO SCH (12:36)
[2016-07-31] MEDS: FERROUS SULFATE 325 MG TABLET PO SCH ×2 (12:36→17:00)
[2016-07-31] MEDS: METOPROLOL SUCC 24HR ER 25 MG TAB.ER.24H. PO SCH (12:37)
[2016-07-31] MEDS: FAMOTIDINE 20 MG TABLET. PO SCH ×2 (12:38→20:35)
[2016-07-31] MEDS: APIXABAN 5 MG TABLET. PO SCH ×2 (12:39→20:35)
[2016-07-31] MEDS: HALOPERIDOL 0.5 MG TABLET PO SCH ×2 (12:40→20:35)
[2016-07-31] MEDS: PRENATAL MULTIVITAMIN TABLET. PO SCH (12:41)
[2016-07-31] MEDS: ESCITALOPRAM 5 MG TABLET. PO SCH (12:41)
[2016-07-31] MEDS: RIVASTIGMINE 1.5 MG CAPSULE. PO SCH (12:47)
[2016-07-31] MEDS: LACTOBACILLUS ACIDOPH & BULGAR 1 TABLET. PO SCH ×2 (12:47→17:00)
[2016-07-31] MEDS: POTASSIUM CHLORIDE 40 MEQ in IV DEXTROSE 5% 1,000 ML IV SCH (12:49)
[2016-07-31] MEDS: SUCRALFATE 1 GM TABLET. PO SCH ×3 (13:00→20:35)
[2016-07-31 15:00] VITALS: BP 134/84
--- NOTE | 2016-07-31 15:21 | PDOC2 ---
PALLIATIVE CARE Palliative Care Note Palliative Care Patient more lethargic today. Poor po intake Spoke with David--he see's patient "different today" Discussed again goals. Informed that if patient did not progress--hospice would be good support for patient and family with the goal of comfort. He would not need to return to the hospital --hospice could be started at the retirement or he could have hospice at home. Understands family would be primary care-givers with hospice team visiting. He will talk to family. Offered meeting again prior to discharge. LILIA RIDLEY Jul 31, 2016 15:21
[2016-07-31 19:47] VITALS: BP 136/84
[2016-07-31] MEDS: TAMSULOSIN 0.4 MG CAP.ER.24H. PO SCH (20:35)
[2016-07-31] MEDS: ATORVASTATIN CALCIUM 10 MG TABLET. PO SCH (20:35)
[2016-07-31 23:00] VITALS: BP 134/78
[2016-08-01] MEDS: PIPERACILLIN/TAZOBACTAM 4.5 GM in IV NORMAL SALINE 100ML 100 ML IV SCH ×2 (00:28→06:26)
[2016-08-01 02:56] VITALS: BP 138/70
--- NOTE | 2016-08-01 05:02 | PN ---
DATE: SUBJECTIVE: The patient is resting slightly propped up in bed, no apparent distress. He is awake, alert, responding appropriately. On questioning him, he denied any complaint. The nursing staff stated that he had an uneventful night. He has eaten his breakfast. PHYSICAL EXAMINATION: GENERAL: When I examined him, he looked well, slightly pale, but no jaundice, cyanosis, or thyromegaly. No ____ edema. VITAL SIGNS: His heart rate was 87, blood pressure 142/87, temperature was 97.5, respiratory rate was 17 and oxygen saturation was 98% on 2 liters oxygen. HEAD, EYES, EARS, NOSE AND THROAT: Showed normocephalic, atraumatic. NECK: Supple. HEART: Showed normal first and second heart sounds with no gallop, rub or murmur. CHEST: Clear to auscultation. No crepitation or rhonchi. ABDOMEN: Distended, soft, and nontender. No guarding or rigidity. No organomegaly. Hernial orifices intact. Bowel sounds normal. NEUROLOGIC: He is more awake, alert, responding appropriately. Cranial nerves 2-12 are intact. He moves his upper extremities without difficulty. He is mostly bedbound and chair-bound. He has severe osteoarthritis of both knee joints and right hip joint. He has left stage IV gluteal decubitus ulcer covered with wound vacuum assisted closure device. He has an indwelling Acosta catheter for benign prostatic hypertrophy with bladder outlet obstruction. His intake was 900, output was 875. LABORATORY DATA: Lab work this morning showed a white cell count of 7100, hemoglobin 8.7, hematocrit 25, MCV 85 and platelet count of 151,000. His chemistry showed a serum sodium of 148, potassium 3.4, chloride 111, bicarbonate 29, anion gap of 8, BUN 10, creatinine 1, estimated GFR was 71.9 mL per minute. Glucose was 108, calcium was 8.2. His blood culture is so far negative. Urine culture growing ____ colony forming units per mL of Pseudomonas aeruginosa that is sensitive to piperacillin and tazobactam. ASSESSMENT: 1. Altered mental status, most likely due to metabolic toxic encephalopathy. 2. Healthcare-associated pneumonia involving the left lower lobe for which he is now on triple antibiotic. 3. Rapid deterioration of his cognitive abilities, has worsened over the last 4 months. 4. Hypertension. 5. Hyperlipidemia. 6. Diastolic congestive heart failure. 7. Atrial fibrillation, sick sinus syndrome for which he has permanent pacemaker. 8. Right upper extremity deep vein thrombosis for which he is on Eliquis. 9. Severe osteoarthritis of both knee joints and the right hip joint. 10. Stage IV left gluteal decubitus ulcer. PLAN: My plan is to discontinue the IV vancomycin, continue with cefepime and Levaquin for now, continue with Zosyn and Levaquin. I will start him also on D5 with potassium and hopefully will discharge him to a fdc facility of the family's choice tomorrow. CASSY ABBOTT MD DR: MINA/agustin JOB#: [id number] / [id number]
[2016-08-01 07:08] VITALS: BP 120/84
[2016-08-01] MEDS: FOLIC/VIT B COMP W-C (RENAL) TABLET. PO SCH (08:30)
[2016-08-01] MEDS: SUCRALFATE 1 GM TABLET. PO SCH ×4 (08:30→22:33)
[2016-08-01] MEDS: LACTOBACILLUS ACIDOPH & BULGAR 1 TABLET. PO SCH ×3 (08:30→16:50)
[2016-08-01] MEDS: PRENATAL MULTIVITAMIN TABLET. PO SCH (08:30)
[2016-08-01] MEDS: FERROUS SULFATE 325 MG TABLET PO SCH ×2 (08:30→16:50)
[2016-08-01] MEDS: RIVASTIGMINE 1.5 MG CAPSULE. PO SCH (08:30)
[2016-08-01] MEDS: MAGNESIUM OXIDE 400 MG TABLET PO SCH (08:30)
[2016-08-01] MEDS: HALOPERIDOL 0.5 MG TABLET PO SCH ×2 (08:30→22:34)
[2016-08-01] MEDS: ASCORBIC ACID 500 MG TABLET PO SCH (08:31)
[2016-08-01] MEDS: METOPROLOL SUCC 24HR ER 25 MG TAB.ER.24H. PO SCH (08:31)
[2016-08-01] MEDS: APIXABAN 5 MG TABLET. PO SCH ×2 (08:31→22:34)
[2016-08-01] MEDS: FAMOTIDINE 20 MG TABLET. PO SCH ×2 (08:31→22:34)
[2016-08-01] MEDS: ESCITALOPRAM 5 MG TABLET. PO SCH (08:32)
[2016-08-01] MEDS: POTASSIUM CHLORIDE 40 MEQ in IV DEXTROSE 5% 1,000 ML IV SCH ×2 (08:53→20:58)
[2016-08-01 10:47] VITALS: BP 106/73
--- NOTE | 2016-08-01 10:58 | PDOC2 ---
PALLIATIVE CARE Palliative Care Note Palliative Care Spoke with son Last. Updated on his father's condition; restless night. confused Discussed option of comfort care. Will have to speak with other family members. Discussed private pay (room and board) at halfway with hospice vs home with hospice. Family does not have resources at this time. Understands his father will likely be discharged to [facility] today. LILIA RIDLEY Aug 01, 2016 10:58
[2016-08-01 11:36] LABS: HEMOGLOBIN 9.6 g/dL (13.0-17.5); RED BLOOD COUNT 3.26 x10^6/uL (4.30-5.70); RED CELL DISTRIBUTION WIDTH 16.8 % (11.5-14.5); WHITE BLOOD COUNT 6.1 x10^3/uL (4.0-11.0)
[2016-08-01 11:42] LABS: ALBUMIN 1.7 g/dL (3.4-5.0); ALBUMIN/GLOBULIN RATIO 0.4 (1.0-1.7); CALCIUM 8.5 mg/dL (8.5-10.1); CREATININE 1.1 mg/dL (0.7-1.3); GFR 64.4; POTASSIUM 3.3 mmol/L (3.5-5.1); TOTAL BILIRUBIN 1.2 mg/dL (0.2-1.0); TOTAL PROTEIN 5.6 g/dL (6.4-8.2)
[2016-08-01] MEDS: ANTI-COAG MONITOR BY PHARMACY. MC PRN (11:47)
[2016-08-01] MEDS: AMOXICILLIN/K CLAV 875/125MG TABLET. PO SCH ×2 (12:13→22:33)
--- NOTE | 2016-08-01 14:33 | RAD ---
Exam performed: Single view chest. History: Left lower lobe pneumonia. Date of service: 08/01/16. Comparison: 09/24/16. Single AP upright portable view chest findings: Cardiomegaly, obscuring the left cardiac silhouette and left hemidiaphragm. Continued parenchymal opacities are also seen in the left midlung. Ectatic tortuous aorta with atheromatous calcification of the aortic knob. There is a pacemaker in place. The right lung is clear. Impression: Ongoing left lower lobe infiltrates. Stable cardiomegaly
[2016-08-01 14:41] VITALS: BP 157/90
[2016-08-01 19:00] VITALS: BP 141/90
[2016-08-01] MEDS: TAMSULOSIN 0.4 MG CAP.ER.24H. PO SCH (22:34)
[2016-08-01] MEDS: ATORVASTATIN CALCIUM 10 MG TABLET. PO SCH (22:34)
[2016-08-01 23:00] VITALS: BP 172/90
[2016-08-02 02:33] VITALS: BP 111/87
[2016-08-02 07:00] VITALS: BP_SYST 111; BP_SYST 152; BP_DIAS 78; BP_DIAS 87
[2016-08-02] MEDS: AMOXICILLIN/K CLAV 875/125MG TABLET. PO SCH ×2 (08:22→21:36)
[2016-08-02] MEDS: LACTOBACILLUS ACIDOPH & BULGAR 1 TABLET. PO SCH ×3 (08:22→18:06)
[2016-08-02] MEDS: ESCITALOPRAM 5 MG TABLET. PO SCH (08:22)
[2016-08-02] MEDS: ASCORBIC ACID 500 MG TABLET PO SCH (08:22)
[2016-08-02] MEDS: FOLIC/VIT B COMP W-C (RENAL) TABLET. PO SCH (08:22)
[2016-08-02] MEDS: FAMOTIDINE 20 MG TABLET. PO SCH ×2 (08:23→21:37)
[2016-08-02] MEDS: APIXABAN 5 MG TABLET. PO SCH ×2 (08:23→21:37)
[2016-08-02] MEDS: METOPROLOL SUCC 24HR ER 25 MG TAB.ER.24H. PO SCH (08:23)
[2016-08-02] MEDS: SUCRALFATE 1 GM TABLET. PO SCH ×4 (08:23→21:36)
[2016-08-02] MEDS: PRENATAL MULTIVITAMIN TABLET. PO SCH (08:23)
[2016-08-02] MEDS: RIVASTIGMINE 1.5 MG CAPSULE. PO SCH (08:23)
[2016-08-02] MEDS: HALOPERIDOL 0.5 MG TABLET PO SCH ×2 (08:23→21:37)
[2016-08-02] MEDS: FERROUS SULFATE 325 MG TABLET PO SCH ×2 (08:23→18:06)
[2016-08-02] MEDS: MAGNESIUM OXIDE 400 MG TABLET PO SCH (08:23)
--- NOTE | 2016-08-02 10:04 | PN ---
DATE: 08/01/2016 SUBJECTIVE: The patient is resting, slightly propped up in bed, in no apparent distress. He continued to be somewhat confused. Unfortunately, his serum sodium continues to rise and today is up to 149, potassium is low at 3.5 despite the fact that he was started on D5W with 40 mEq of potassium chloride. PHYSICAL EXAMINATION: GENERAL: When I examined him this morning, he looked well and was clearly in no apparent respiratory distress. He was slightly pale, but no jaundice, cyanosis or thyromegaly. No jugular distension, no limb edema. VITAL SIGNS: His heart rate was 87, blood pressure was 106/73, temperature was 99.1, respiratory rate was 18 and oxygen saturation was 96%. HEAD, EYES, EARS, NOSE AND THROAT: Showed normocephalic, atraumatic. NECK: Supple. HEART: Showed normal first and second heart sounds with no gallop, rub or murmur. CHEST: Clear to auscultation. No crepitation or rhonchi. ABDOMEN: Distended, soft, nontender. NEUROLOGIC: He was awake, alert, somewhat confused. All his cranial nerves are intact. He moves his upper extremities to a much greater extent than his lower extremities as he has severe osteoarthritis of both knee joints and the right hip joint. He has left gluteal decubitus ulcer stage 4. His intake over the last 24 hours was 930, output was 525. LABORATORY DATA: Showed a serum sodium 149, potassium 3.2, chloride 112, bicarbonate 30, anion gap of 7, BUN 10, creatinine 1.1, estimated GFR was 64 mL per minute. His glucose was 116, calcium was 8.5. White cell count was 7100, hemoglobin 8.7, hematocrit 25, MCV 85, and platelet count of 151,000. ASSESSMENT: 1. Altered mental status, most likely metabolic toxic encephalopathy. 2. Healthcare-associated pneumonia involving the left lower lobe for which he was treated with antibiotics. 3. Rapid deterioration with cognitive impairment, multifactorial, although he is now more awake and alert. We have discussed with the family, and they wanted to continue with aggressive treatment for the time being. 4. Hypertension, well controlled. 5. Hyperlipidemia. 6. Diastolic congestive heart failure. 7. Atrial fibrillation with sick sinus syndrome. The patient has a permanent pacemaker. 8. Right upper extremity deep vein thrombosis, which he is on Eliquis. 9. 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 10. Stage 4 left gluteal decubitus ulcer. 11. Hypernatremia and hypokalemia. PLAN: My plan is to discontinue the IV antibiotics. I will continue with the D5W, switch him to oral Levaquin and repeat his labs tomorrow, and if all is well, we can discharge him back to [facility] in [place]. CASSY ABBOTT MD DR: MINA/agustin JOB#: [id number] / [id number]
[2016-08-02 11:00] VITALS: BP 170/86
[2016-08-02] MEDS: AMLODIPINE BESYLATE 10 MG TABLET PO SCH (12:17)
[2016-08-02 12:43] LABS: GFR 71.9; POTASSIUM 3.7 mmol/L (3.5-5.1)
[2016-08-02 12:49] LABS: CALCIUM 8.3 mg/dL (8.5-10.1)
[2016-08-02 15:00] VITALS: BP 139/90
--- NOTE | 2016-08-02 15:11 | PDOC2 ---
PALLIATIVE CARE Palliative Care Note Palliative Care Attempted to reach Last Rausch. No answer. Left message to return call. Plan per family meeting was for patient to go to [facility] when discharged. Noted as well by Brittni MORE. Spoke with Dr. Roberts this am. Depending on Lab results patient could be discharged to [facility] today. LILIA RIDLEY Aug 02, 2016 15:11
--- NOTE | 2016-08-02 16:23 | PDOC2 ---
PALLIATIVE CARE Palliative Care Note Palliative Care Spoke with Last /son/DPOA and his . Reviewed medical condition. He and his brothers have discussed their father's medical condition and continued decline. Last would like IP Hospice at [facility] as first choice and return to [facility] with hospice 2nd choice. Spoke with Valencia MORE and [employer] who will assist with faxing information to [facility]. Last can be reached at [phone] or [phone]. Last is enroute to [place]. His brother David is also DPOA and can assist with signing hospice documents as well. LILIA RIDLEY Aug 02, 2016 16:23
[2016-08-02 19:00] VITALS: BP 128/65
[2016-08-02] MEDS: ATORVASTATIN CALCIUM 10 MG TABLET. PO SCH (21:36)
[2016-08-02] MEDS: TAMSULOSIN 0.4 MG CAP.ER.24H. PO SCH (21:36)
[2016-08-02 23:00] VITALS: BP 130/68
[2016-08-03 03:00] VITALS: BP 121/97
[2016-08-03 07:00] VITALS: BP_SYST 150; BP_SYST 180; BP_DIAS 81; BP_DIAS 90
[2016-08-03] MEDS: APIXABAN 5 MG TABLET. PO SCH ×2 (09:02→21:12)
[2016-08-03] MEDS: FERROUS SULFATE 325 MG TABLET PO SCH ×2 (09:02→16:45)
[2016-08-03] MEDS: HALOPERIDOL 0.5 MG TABLET PO SCH ×2 (09:03→21:12)
[2016-08-03] MEDS: METOPROLOL SUCC 24HR ER 25 MG TAB.ER.24H. PO SCH (09:03)
[2016-08-03] MEDS: ESCITALOPRAM 10 MG TABLET. PO SCH (09:03)
[2016-08-03] MEDS: PRENATAL MULTIVITAMIN TABLET. PO SCH (09:03)
[2016-08-03] MEDS: MAGNESIUM OXIDE 400 MG TABLET PO SCH (09:04)
[2016-08-03] MEDS: FOLIC/VIT B COMP W-C (RENAL) TABLET. PO SCH (09:04)
[2016-08-03] MEDS: ASCORBIC ACID 500 MG TABLET PO SCH (09:04)
[2016-08-03] MEDS: AMLODIPINE BESYLATE 10 MG TABLET PO SCH (09:04)
[2016-08-03] MEDS: AMOXICILLIN/K CLAV 875/125MG TABLET. PO SCH ×2 (09:04→21:12)
[2016-08-03] MEDS: RIVASTIGMINE 1.5 MG CAPSULE. PO SCH (09:04)
[2016-08-03] MEDS: LACTOBACILLUS ACIDOPH & BULGAR 1 TABLET. PO SCH ×3 (09:04→16:45)
[2016-08-03] MEDS: SUCRALFATE 1 GM TABLET. PO SCH ×4 (09:04→21:12)
[2016-08-03] MEDS: FAMOTIDINE 20 MG TABLET. PO SCH ×2 (09:04→21:12)
[2016-08-03 11:00] VITALS: BP 146/80
[2016-08-03 15:00] VITALS: BP 132/76
[2016-08-03 19:00] VITALS: BP 144/75
[2016-08-03] MEDS: TAMSULOSIN 0.4 MG CAP.ER.24H. PO SCH (21:12)
[2016-08-03] MEDS: ATORVASTATIN CALCIUM 10 MG TABLET. PO SCH (21:12)
[2016-08-03 23:00] VITALS: BP 137/71
[2016-08-04 03:00] VITALS: BP 145/54
[2016-08-04 07:00] VITALS: BP 139/81
[2016-08-04] MEDS: ESCITALOPRAM 10 MG TABLET. PO SCH (08:47)
[2016-08-04] MEDS: LACTOBACILLUS ACIDOPH & BULGAR 1 TABLET. PO SCH ×3 (08:47→17:11)
[2016-08-04] MEDS: FERROUS SULFATE 325 MG TABLET PO SCH ×2 (08:48→17:11)
[2016-08-04] MEDS: RIVASTIGMINE 1.5 MG CAPSULE. PO SCH (08:48)
[2016-08-04] MEDS: HALOPERIDOL 0.5 MG TABLET PO SCH ×2 (08:48→20:59)
[2016-08-04] MEDS: SUCRALFATE 1 GM TABLET. PO SCH ×4 (08:48→20:59)
[2016-08-04] MEDS: AMOXICILLIN/K CLAV 875/125MG TABLET. PO SCH ×2 (08:48→20:59)
[2016-08-04] MEDS: AMLODIPINE BESYLATE 10 MG TABLET PO SCH (08:48)
[2016-08-04] MEDS: MAGNESIUM OXIDE 400 MG TABLET PO SCH (08:48)
[2016-08-04] MEDS: FAMOTIDINE 20 MG TABLET. PO SCH ×2 (08:48→20:59)
[2016-08-04] MEDS: FOLIC/VIT B COMP W-C (RENAL) TABLET. PO SCH (08:48)
[2016-08-04] MEDS: PRENATAL MULTIVITAMIN TABLET. PO SCH (08:48)
[2016-08-04] MEDS: ASCORBIC ACID 500 MG TABLET PO SCH (08:49)
[2016-08-04] MEDS: METOPROLOL SUCC 24HR ER 25 MG TAB.ER.24H. PO SCH (08:49)
[2016-08-04] MEDS: APIXABAN 5 MG TABLET. PO SCH ×2 (08:49→21:00)
[2016-08-04 11:00] VITALS: BP 139/71
--- NOTE | 2016-08-04 11:08 | PN ---
DATE: 08/03/2016 SUBJECTIVE: The patient is an 80-year-old male patient who has multiple medical problems and as stated, declined both physically and cognitively. I have followed him for the last 4 months as he was at [facility] and I admitted him to [facility], then to [facility] and also to [facility] in [place] where he fell and had a large ____ hematoma on the left forehead. He has severe osteoarthritis of both knee joints and the right hip joint as well as stage 4 right gluteal decubitus ulcer. He has been steadily declining, cognitively becoming more confused, disoriented. He has been mostly bed bound and he has also marked hypernatremia and hypokalemia that were treated with D5W with 40 mEq of potassium chloride. In fact, his lab work yesterday showed his sodium is back to 145, potassium 3.7, chloride 110, bicarbonate 28, anion gap of 7, BUN 9, creatinine 1 and initially the plan was for him to go to [facility] in [place] our palliative care team. I had discussed with his son and his the worsening medical conditions and continued to decline and his son would like inpatient hospice at [facility] is the first choice and to return to [facility] with hospice second choice, but still waiting. The inpatient hospice unit at [facility] was contacted and apparently, they have a bed. They will not be able to accept him with wound VAC, but we can discontinue that and we are waiting for finishing paperwork from the family before we can discharge him to [facility] inpatient hospice unit. PHYSICAL EXAMINATION: GENERAL: When I saw him today, he looked well and was clearly in no apparent respiratory distress, pale, but no jaundice, cyanosis or thyromegaly. No jugular venous distention, no limb edema. VITAL SIGNS: His heart rate was 94, blood pressure was 180/90, temperature was 96.8, respiratory rate was 22 and oxygen saturation was 97%. HEAD, EYES, EARS, NOSE AND THROAT: Showed normocephalic, atraumatic. NECK: Supple. HEART: Showed normal first and second heart sounds with no gallop, rub or murmur. CHEST: Clear to auscultation. No crepitation or rhonchi. ABDOMEN: Distended, soft, nontender. No guarding or rigidity. No organomegaly. All hernial orifices intact. Bowel sounds normal. NEUROLOGIC: He was confused, disoriented. However, all cranial nerves intact. He moves his upper extremities to much good extent than his lower extremities. He is mostly bedbound. He has stage 4 left gluteal decubitus ulcer covered with wound VAC. He is mostly bed bound as he has severe osteoarthritis of both knee joints and right hip joint and has been bedbound for almost 4 months now. LABORATORY DATA: As of yesterday showed serum sodium 145, potassium 3.7, chloride 110, bicarbonate 28, anion gap of 7, BUN 9, creatinine 1, estimated GFR was 72 mL per minute. His glucose was 109, calcium was 8.3, white cell count was 6100, hemoglobin 9.6, hematocrit 29, MCV 89 and platelet count 254,000. ASSESSMENT: 1. Altered mental status, most likely metabolic toxic encephalopathy. 2. Healthcare-associated pneumonia involving his left lower lobe for which he was treated with antibiotic. 3. Marked decline in his cognitive function, multifactorial. 4. Hypertension. 5. Hyperlipidemia. 6. Diastolic congestive heart failure. 7. Atrial fibrillation with sick sinus syndrome, the patient has a permanent pacemaker. 8. Right upper extremity deep vein thrombosis, which he is on Eliquis. 9. Severe osteoarthritis of both knee joints and hip joints. 10. Stage 4 left gluteal decubitus ulcer. 11. Hypernatremia and hypokalemia, resolved. If the patient was accepted at [facility] inpatient hospice unit, we will discharge him today. CASSY ABBOTT MD DR: MINA/agustin JOB#: [id number] / [id number]
--- NOTE | 2016-08-04 13:53 | PDOC2 ---
NEUROLOGY CONSULT Date of Admission Date of Admission DATE: 08/04/16 TIME: 13:41 Reason for Consult Reason for Consult: IMPRESSION: OD ET Metabolic encephalopathy. Dementia. UTI HTN HLD CHF COPD DM SSS Renal disease. Skin ulcers. RECOMMENDATIONS/PLAN: Sinemet 25/100 mg bid, titrate up as needed. Beta-Dariana for ET Lab: see orders. Treat medical diseases. Replacement per family. HISTORY OF THE PRESENT ILLNESS: 80-y-old male patient with above complicated medical diseases has been having tremors in UE and LE, so Neurology was called for consultation. Patient is unable to provide information. PAST MEDICAL HISTORY: Please see above. PAST SURGERY HISTORY: Tonsillectomy Knee surgery, ALLERGY: Reviewed. MEDICATIONS: Refer to MAR FAMILY HISTORY: H Non contributory. SOCIAL HISTORY: He came from nursing facility. Denies current smoking, drinking, and illicit drug use. REVIEW OF SYSTEMS: Constitutional: Chronically sick. Head: No recent traumatic brain or head injury. Skin: ulcers noted. Ear: No infection. Eyes: No vision loss. Nose: No bleeding or purulent discharges. Hearing: Hearing decrease. Neck: No injury recently. Cardiac: CAD, HTN, HLD. Pulmonary: COPD. GI: No GI ulcer, GI bleeding. Urinary/genital: UTI. Endocrinologic: Diabetes Mellitus, hypothyroidism. Skeletomuscular: Generalized weakness. Neurological: see HP. Psychiatric: Denies drug use/abuse. Otherwise, not [id number] review of systems. PHYSICAL EXAMINATION: General appearance is in chronic distress. HEENT: Normocephalic and nontraumatic. Eyes, nose, ears, and throat are unremarkable. Neck is supple. No lymphadenopathy. No crepitus. Cardiovascular: S1, S2, regular rate and rhythm. Pulmonary: Breathing sounds decreased to auscultation bilaterally. Abdomen: Bowel sounds are positive. Extremities: No rash, lesions, or edema. No restriction of range of motion NEUROLOGICAL EXAMINATION: Awake. Not oriented to time, place but may know persons. PERRL. EOMI. CN: no acute focal findings. Muscle tone: increased in all extremities. Muscle strength: 4+ UE, 3 LE DTR: 1+ Plantar reflex: Neutral response bilaterally Gait: Unable to walk. Sensory exam: no acute abnormal findings. Not able to access cerebellar signs due to not follow commands.. He was unable to perform F-T-N test due to tremors. Current Medications Current Medications Current Medications Sodium Chloride (Iv Sodium Chloride 0.9% 500ml Bag) 500 ml @ 500 mls/hr 1X ONCE IV Last administered on 07/27/16 21:22; Start 07/27/16 at 21:15; Stop at 22:14; Status DC Vancomycin HCl (Vanco Per Pharmacy) 1 each PRN DAILY PRN MC SEE COMMENTS Last administered on 07/30/16 13:53; Start 07/27/16 at 22:30; Stop 07/31/16 at 10:46 ; Status DC Piperacillin Sod/ Tazobactam Sod (Zosyn Per Pharmacy) 1 each PRN DAILY PRN MC SEE COMMENTS; Start 07/27/16 at 22:00; Stop 08/01/16 at 11:14; Status DC Levofloxacin/ Dextrose 1 each 1 each PRN DAILY PRN MC SEE COMMENTS; Start 07/27 at 22:00; Stop 08/01/16 at 11:14; Status DC Vancomycin HCl/ Sodium Chloride (Iv Sodium Chloride 0.9% 500ml Bag) 500 ml @ 250 mls/hr 1X ONCE IV Last administered on 07/27/16 22:30; Start 07/27/16 at 22:30; Stop 07/28/16 at 00:29; Status DC Ondansetron HCl (Zofran) 4 mg PRN Q8HRS PRN IV NAUSEA/VOMITING; Start 07/27/16 at 22:15; Stop 07/28/16 at 22:14; Status DC Fentanyl Citrate (Fentanyl 2ml Vial) 50 mcg PRN Q2HR PRN IV PAIN; Start at 22:15; Stop 07/28/16 at 22:14; Status DC Acetaminophen 650 mg 650 mg PRN Q4HRS PRN PO FEVER; Start 07/27/16 at 22:15; Stop 07/28/16 at 22:14; Status DC Piperacillin Sod/ Tazobactam Sod 4.5 gm/Sodium Chloride 100 ml @ 200 mls/hr Q6HRS IV Last administered on 08/01/16 06:26; Start 07/28/16 at 00:00; Stop 08/01/16 at 11:13; Status DC Levofloxacin/ Dextrose 150 ml @ 100 mls/hr ONCE ONCE IV Last administered on 07/28/16 01:37; Start 07/28/16 at 01:00; Stop 07/28/16 at 02:29; Status DC Levofloxacin/ Dextrose 150 ml @ 100 mls/hr Q24H IV Last administered on 20:35; Start 07/28/16 at 21:00; Stop 08/01/16 at 11:13; Status DC Vancomycin HCl/ Sodium Chloride (Iv Sodium Chloride 0.9% 500ml Bag) 500 ml @ 250 mls/hr Q12H IV Last administered on 07/28/16 23:35; Start 07/28/16 at 10: 30; Stop 07/29/16 at 10:57; Status DC Vancomycin HCl 1 each 1 each 1X ONCE MC Last administered on 07/29/16 10:00; Start 07/29/16 at 10:00; Stop 07/29/16 at 10:01; Status DC Vancomycin HCl/ Sodium Chloride (Iv Sodium Chloride 0.9% 250ml) 250 ml @ 167 mls/hr Q12H IV Last administered on 07/31/16 01:58; Start 07/29/16 at 14:00; Stop 07/31/16 at 10:46; Status DC Potassium Chloride (Klor-Con) 20 meq TIDWMEALS PO Last administered on 18:22; Start 07/30/16 at 12:00; Stop 07/31/16 at 10:53; Status DC Acetaminophen (Tylenol) 500 mg PRN Q4HRS PRN PO FEVER; Start 07/31/16 at 10:30; Stop 07/31/16 at 10:37; Status DC Apixaban (Eliquis) 5 mg BID PO Last administered on 08/04/16 08:49; Start at 11:30 Ascorbic Acid (Vitamin C) 500 mg DAILY PO Last administered on 08/04/16 08:49; Start 07/31/16 at 11:30 Atorvastatin Calcium (Lipitor) 10 mg QHS PO Last administered on 08/03/16 21:12 ; Start 07/31/16 at 21:00 Glucose (Insta-Glucose) 15 gm PRN DAILY PRN PO LOW BLOOD SUGAR; Start 07/31/16 at 10:30 Famotidine (Pepcid) 20 mg BID PO Last administered on 08/04/16 08:48; Start 07/31/16 at 11:30 Ferrous Sulfate (Feosol) 325 mg BIDWMEALS PO Last administered on 08/04/16 08: 48; Start 07/31/16 at 11:30 Vitamin B Complex/ Vitamin C (Nephro-Radha) 1 tab DAILY PO Last administered on 08/04/16 08:48; Start 07/31/16 at 11:30 Haloperidol (Haldol) 0.5 mg BID PO Last administered on 08/04/16 08:48; Start 07/31/16 at 11:30 Metoprolol Succinate (Toprol Xl) 25 mg DAILY PO Last administered on 08/04/16 08:49; Start 07/31/16 at 11:30 Rivastigmine Tartrate (Exelon) 1.5 mg DAILY PO Last administered on 08/04/16 08 :48; Start 07/31/16 at 11:30 Sucralfate (Carafate) 1 gm QID PO Last administered on 08/04/16 12:34; Start at 13:00 Tamsulosin HCl (Flomax) 0.4 mg HS PO Last administered on 08/03/16 21:12; Start 07/31/16 at 21:00 Escitalopram Oxalate (Lexapro) 15 mg DAILY PO Last administered on 08/02/16 08: 22; Start 07/31/16 at 11:30; Stop 08/02/16 at 18:03; Status DC Prenat Multivit/ Morton/Iron/Folic Ac (Multivitamin ) 1 tab DAILY PO Last administered on 08/04/16 08:48; Start 07/31/16 at 11:30 Lactobacillus Acidophilus (Bacid, Sherrill-Bid) 1 tab TIDWMEALS PO Last administered on 08/04/16 12:34; Start 07/31/16 at 12:00 Magnesium Oxide (Magnesium Oxide) 400 mg DAILY PO Last administered on 08:48; Start 07/31/16 at 11:30 Oxycodone HCl (Roxicodone) 5 mg PRN Q6HRS PRN PO PAIN; Start 07/31/16 at 10:30 Acetaminophen (Tylenol) 500 mg PRN Q4HRS PRN PO FEVER; Start 07/31/16 at 10:45 Info 1 each 1 each PRN DAILY PRN MC SEE COMMENTS Last administered on 08/01/16 11:47; Start 07/31/16 at 11:00 Potassium Chloride/Dextrose 1,020 ml @ 75 mls/hr Q24H IV Last administered on 08/01/16 20:58; Start 07/31/16 at 11:30; Stop 08/03/16 at 11:27; Status DC Amoxicillin/ Clavulanate Potassium (Augmentin 875/ 125mg) 1 tab BID PO Last administered on 08/04/16 08:48; Start 08/01/16 at 12:00 Amlodipine Besylate (Norvasc) 10 mg DAILY PO Last administered on 08/04/16 08: 48; Start 08/02/16 at 11:30 Escitalopram Oxalate (Lexapro) 15 mg DAILY PO Last administered on 08/04/16 08: 47; Start 08/03/16 at 09:00 Active Scripts Active Reported Vitamin C (Ascorbic Acid) 500 Mg Tablet 500 Mg PO Oxycodone HCl 10 Mg/0.5 Ml Syringe 5 Mg PO Rivastigmine (Rivastigmine Tartrate) 1.5 Mg Capsule 1.5 Mg PO Sucralfate 1 Gm Tablet 1 Tab PO QID Nephro-Radha Tablet (Folic Acid/Vitamin B Comp W-C) 0.8 Mg Tablet 1 Tab PO DAILY Melatonin 3 Mg Tablet (Melatonin/Pyridoxine) 1 Each Tablet 1 Each PO Magnesium Oxide 500 Mg Capsule 400 Mg PO Acidophilus (Lactobacillus Acidophilus) 1 Each Capsule 1 Each PO Humalog Kwikpen (Insulin Lispro) 200 Unit/1 Ml Insuln.pen 200 Unit SQ Haloperidol 0.5 Mg Tablet 0.5 Mg PO Glucose Gel (Dextrose) 38 Gm Gel..gram. 38 Gm PO Ferosul (Ferrous Sulfate) 325 Mg Tablet 325 Mg PO Escitalopram Oxalate 20 Mg Tablet 15 Mg PO DAILY Eliquis (Apixaban) 5 Mg Tablet 5 Mg PO Centravites Tablet (Fa/Mv,Ca,Iron,Min/Lycopene/Lut) 1 Each Tablet 1 Each PO Atorvastatin Calcium 10 Mg Tablet 1 Tab PO DAILY Famotidine 20 Mg Tablet 20 Mg PO BID Tylenol (Acetaminophen) 325 Mg Tablet 500 Mg PO PRN Q4HRS PRN Jasmyne-Radha Rx Tablet (Vit B Cmplx 3/Fa/Vit C/Biotin) 1 Each Tablet 1 Each PO DAILY Metoprolol Succinate ( Xl ) (Metoprolol Succinate) 25 Mg Tab.er.24h 1 Tab PO DAILY Tamsulosin Hcl 0.4 Mg Cap.er.24h 1 Cap PO HS Allergies Allergies: Coded Allergies: I S O L A T I O N *CONTACT* (Verified Allergy, Unknown, 07/31/16) (R) Pseudomonas No Known Medication Allergies (Verified Allergy, Unknown, 06/04/16) Vitals VITALS Vital Signs Date Time Temp Pulse Resp B/P Pulse Ox O2 Delivery O2 Flow Rate FiO2 08/04/16 11:00 97.6 91 22 139/71 98 Room Air 97.6 08/04/16 07:00 2.0 MONROE HUYNH MD Aug 04, 2016 13:53
[2016-08-04] MEDS: CARBIDOPA/LEVODOPA 25/100MG TABLET PO SCH ×2 (14:02→20:59)
[2016-08-04 15:00] VITALS: BP 122/58
[2016-08-04 19:00] VITALS: BP 141/74
[2016-08-04] MEDS: ATORVASTATIN CALCIUM 10 MG TABLET. PO SCH (20:59)
[2016-08-04] MEDS: TAMSULOSIN 0.4 MG CAP.ER.24H. PO SCH (21:00)
[2016-08-04 23:00] VITALS: BP 124/64
--- NOTE | 2016-08-04 23:55 | PN ---
DATE: SUBJECTIVE: The patient is resting, slightly propped up in bed, in no apparent distress. Apparently, did not qualify for inpatient hospice care at [facility] and the [facility] at [place], did not have a bed for him. The family wanted him to be seen by a neurologist as he has tremors that do not seem to be Parkinsonian, but I did consult Dr. Mack to see him and evaluate him for possible Parkinson's disease. PHYSICAL EXAMINATION: GENERAL: When I examined him this afternoon, he looked well and was clearly in no apparent distress. He is awake, alert, but confused. Continues to be tremulous. VITAL SIGNS: His heart rate was 104, blood pressure was 139/81, temperature was 98.5, respiratory rate was 18 and oxygen saturation was 95% on 2 liters of oxygen by nasal cannula. HEAD, EYES, EARS, NOSE, AND THROAT: Normocephalic and atraumatic. NECK: Supple. HEART: Showed normal first and second heart sounds with no gallop, rub or murmur. CHEST: Clear to auscultation. No crepitation or rhonchi. ABDOMEN: Distended, soft, and nontender. No guarding or rigidity. No organomegaly. Hernial orifices intact. Bowel sounds normal. NEUROLOGIC: He was awake, alert, but confused. All his cranial nerves are intact. Moves upper extremities to much significant extend than lower extremities. He is mostly bedbound. He has severe osteoarthritis of both knee joints and right hip joint. He has stage IV left gluteal decubitus ulcer. His intake over the last 24 hours was 460, output was 550. LABORATORY DATA: His most recent white cell count was 6000, hemoglobin 9.6, hematocrit 29, MCV 89 and platelet count of 154,000. His serum sodium was 145, potassium 3.7, chloride 110, bicarbonate 28, anion gap of 7, BUN 9, creatinine 1, estimated GFR was 72 mL per minute, glucose 109 and calcium was 8.3. ASSESSMENT: 1. Altered mental status, most likely metabolic toxic encephalopathy. 2. ____ pneumonia involving his left lower lobe for which he was treated with antibiotics. 3. Marked decline in his cognitive function, multifactorial. 4. Hypertension. 5. Hyperlipidemia. 6. Chronic diastolic congestive heart failure. 7. Atrial fibrillation with sick sinus syndrome, status post permanent pacemaker. 8. Right upper extremity deep vein thrombosis for which he is on Eliquis. 9. Severe osteoarthritis of both knee joints and hip joints. 10. Stage 4 left gluteal decubitus ulcer. 11. Hypernatremia and hypokalemia, resolved. Unfortunately, the patient was not accepted at [facility] and has no bed available at [facility] in [place]. PLAN: I will consult the neurologist as per family request. They were concerned that he might have Parkinson's disease, although I am not ____ sure that is the case and we will consult the case technician tomorrow for placement in a nursing home facility. CASSY ABBOTT MD DR: MINA/agustin JOB#: [id number] / [id number]
[2016-08-05 03:00] VITALS: BP 128/75
[2016-08-05 06:35] LABS: CALCIUM 8.2 mg/dL (8.5-10.1); CREATININE 0.9 mg/dL (0.7-1.3); GFR 81.2; POTASSIUM 3.2 mmol/L (3.5-5.1)
[2016-08-05 08:10] VITALS: BP 140/73
[2016-08-05] MEDS: AMOXICILLIN/K CLAV 875/125MG TABLET. PO SCH ×2 (09:10→21:52)
[2016-08-05] MEDS: FERROUS SULFATE 325 MG TABLET PO SCH ×2 (09:11→17:47)
[2016-08-05] MEDS: LACTOBACILLUS ACIDOPH & BULGAR 1 TABLET. PO SCH ×3 (09:12→17:47)
[2016-08-05] MEDS: FOLIC/VIT B COMP W-C (RENAL) TABLET. PO SCH (09:12)
[2016-08-05] MEDS: SUCRALFATE 1 GM TABLET. PO SCH ×4 (09:13→21:52)
[2016-08-05] MEDS: ESCITALOPRAM 10 MG TABLET. PO SCH (09:14)
[2016-08-05] MEDS: RIVASTIGMINE 1.5 MG CAPSULE. PO SCH (09:15)
[2016-08-05] MEDS: MAGNESIUM OXIDE 400 MG TABLET PO SCH (09:15)
[2016-08-05] MEDS: PRENATAL MULTIVITAMIN TABLET. PO SCH (09:16)
[2016-08-05] MEDS: FAMOTIDINE 20 MG TABLET. PO SCH ×2 (09:16→21:53)
[2016-08-05] MEDS: AMLODIPINE BESYLATE 10 MG TABLET PO SCH (09:17)
[2016-08-05] MEDS: CARBIDOPA/LEVODOPA 25/100MG TABLET PO SCH ×2 (09:18→21:53)
[2016-08-05] MEDS: APIXABAN 5 MG TABLET. PO SCH ×2 (09:19→21:53)
[2016-08-05] MEDS: HALOPERIDOL 0.5 MG TABLET PO SCH ×2 (09:19→21:53)
[2016-08-05] MEDS: ASCORBIC ACID 500 MG TABLET PO SCH (09:20)
[2016-08-05] MEDS: METOPROLOL SUCC 24HR ER 25 MG TAB.ER.24H. PO SCH (09:21)
--- NOTE | 2016-08-05 10:10 | PDOC ---
PROGRESS NOTES Assessment Assessment PD ET Metabolic encephalopathy. Dementia. UTI HTN HLD CHF COPD DM SSS Renal disease. Skin ulcers. Obesity. RECOMMENDATIONS/PLAN: Continue Sinemet 25/100 mg, increase to tid dosing. Beta-Dariana for ET Treat medical diseases. Hospice care per family. HISTORY OF THE PRESENT ILLNESS: 80-y-old male patient with above complicated medical diseases has been having significant tremors in UE and LE, so Neurology was called for consultation. Patient is unable to provide information. Tremors improved on 08/05. PAST MEDICAL HISTORY: Please see above. PAST SURGERY HISTORY: Tonsillectomy Knee surgery, ALLERGY: Reviewed. MEDICATIONS: Refer to MAR FAMILY HISTORY: H Non contributory. SOCIAL HISTORY: He came from nursing facility. Denies current smoking, drinking, and illicit drug use. REVIEW OF SYSTEMS: Constitutional: Chronically sick. Head: No recent traumatic brain or head injury. Skin: ulcers noted. Ear: No infection. Eyes: No vision loss. Nose: No bleeding or purulent discharges. Hearing: Hearing decrease. Neck: No injury recently. Cardiac: CAD, HTN, HLD. Pulmonary: COPD. GI: No GI ulcer, GI bleeding. Urinary/genital: UTI. Endocrinologic: Diabetes Mellitus, hypothyroidism. Skeletomuscular: Generalized weakness. Neurological: see HP. Psychiatric: Denies drug use/abuse. Otherwise, not -fhkcu review of systems. PHYSICAL EXAMINATION: General appearance is in chronic distress. HEENT: Normocephalic and nontraumatic. Eyes, nose, ears, and throat are unremarkable. Neck is supple. No lymphadenopathy. No crepitus. Cardiovascular: S1, S2, regular rate and rhythm. Pulmonary: Breathing sounds decreased to auscultation bilaterally. Abdomen: Bowel sounds are positive. Extremities: No rash, lesions, or edema. No restriction of range of motion NEUROLOGICAL EXAMINATION: Awake. Not oriented to time, place but may know persons. PERRL. EOMI. CN: no acute focal findings. Muscle tone: increased in all extremities. Muscle strength: 4+ UE, 3- LE DTR: 1+ Plantar reflex: Neutral response bilaterally Gait: Unable to walk. Sensory exam: no acute abnormal findings. Not able to access cerebellar signs due to not follow commands.. He was unable to perform F-T-N test due to tremors. Objective Objective Vital Signs Date Time Temp Pulse Resp B/P Pulse Ox O2 Delivery O2 Flow Rate FiO2 08/05/16 09:21 104 140/73 08/05/16 08:10 98.4 20 97 Room Air 98.4 08/04/16 07:00 2.0 Intake and Output 08/05/16 07:00 Intake Total 1320 ml Output Total 1050 ml Balance 270 ml Intake Oral 1320 ml Output Urine Total 1050 ml # Bowel Movements 2 Vitals Signs Vitals VS - Last 72 Hours, by Label Date Time Temp Pulse Resp B/P Pulse Ox O2 Delivery O2 Flow Rate FiO2 08/05/16 09:21 104 140/73 08/05/16 09:17 104 140/73 08/05/16 08:10 98.4 104 20 140/73 97 Room Air 98.4 08/05/16 03:00 98.1 100 18 128/75 96 Room Air 98.1 08/04/16 23:00 98.8 99 18 124/64 96 Room Air 98.8 08/04/16 21:16 Room Air 08/04/16 19:00 99.3 101 18 141/74 96 Room Air 99.3 08/04/16 15:00 99.7 90 18 122/58 98 99.7 08/04/16 11:00 97.6 91 22 139/71 98 Room Air 97.6 08/04/16 08:49 104 139/81 08/04/16 08:48 94 134/91 08/04/16 08:00 Room Air 08/04/16 07:00 98.5 102 18 139/81 95 Nasal Cannula 2.0 98.5 Laboratory Laboratory Laboratory Tests Test 08/05/16 05:15 Sodium Level 146mmol/L (136-145) Potassium Level 3.2mmol/L (3.5-5.1) Chloride Level 112mmol/L (98-107) Carbon Dioxide Level 27mmol/L (21-32) Anion Gap 7 (6-14) Blood Urea Nitrogen 11mg/dL (8-26) Creatinine 0.9mg/dL (0.7-1.3) Estimated GFR (Cockcroft-Gault) 81.2 Glucose Level 110mg/dL (70-99) Calcium Level 8.2mg/dL (8.5-10.1) Microbiology 07/27/16 Blood Culture - Final, Complete NO GROWTH AFTER 5 DAYS 07/27/16 Urine Culture - Final, Complete 07/27/16 Urine Culture Result 1 (JACKELINE) - Final, Complete 07/27/16 Antimicrobic Susceptibility - Final, Complete Medication Medications Current Medications Carbidopa/Levodopa (Sinemet ) 1 tab BID PO Last administered on 08/05/16t 09:18; Start 08/04/16 at 14:00 Comment Review of Relevant I have reviewed the following items zeke (where applicable) has been applied. MONROE HUYNH MD Aug 05, 2016 10:10
[2016-08-05 10:30] VITALS: BP 99/70
[2016-08-05 15:00] VITALS: BP 129/64
[2016-08-05 19:00] VITALS: BP 134/71
[2016-08-05] MEDS: ATORVASTATIN CALCIUM 10 MG TABLET. PO SCH (21:52)
[2016-08-05] MEDS: TAMSULOSIN 0.4 MG CAP.ER.24H. PO SCH (21:54)
[2016-08-05 23:00] VITALS: BP 179/85
[2016-08-06 03:00] VITALS: BP 162/88
[2016-08-06 07:20] VITALS: BP 142/77
[2016-08-06] MEDS: LACTOBACILLUS ACIDOPH & BULGAR 1 TABLET. PO SCH ×2 (08:18→11:56)
[2016-08-06] MEDS: ESCITALOPRAM 10 MG TABLET. PO SCH (08:20)
[2016-08-06] MEDS: METOPROLOL SUCC 24HR ER 25 MG TAB.ER.24H. PO SCH (08:20)
[2016-08-06] MEDS: ASCORBIC ACID 500 MG TABLET PO SCH (08:20)
[2016-08-06] MEDS: SUCRALFATE 1 GM TABLET. PO SCH ×2 (08:20→11:56)
[2016-08-06] MEDS: PRENATAL MULTIVITAMIN TABLET. PO SCH (08:21)
[2016-08-06] MEDS: FERROUS SULFATE 325 MG TABLET PO SCH (08:21)
[2016-08-06] MEDS: AMLODIPINE BESYLATE 10 MG TABLET PO SCH (08:21)
[2016-08-06] MEDS: FAMOTIDINE 20 MG TABLET. PO SCH (08:21)
[2016-08-06] MEDS: FOLIC/VIT B COMP W-C (RENAL) TABLET. PO SCH (08:21)
[2016-08-06] MEDS: CARBIDOPA/LEVODOPA 25/100MG TABLET PO SCH (08:21)
[2016-08-06] MEDS: HALOPERIDOL 0.5 MG TABLET PO SCH (08:21)
[2016-08-06] MEDS: APIXABAN 5 MG TABLET. PO SCH (08:21)
[2016-08-06] MEDS: MAGNESIUM OXIDE 400 MG TABLET PO SCH (08:21)
[2016-08-06] MEDS: AMOXICILLIN/K CLAV 875/125MG TABLET. PO SCH (08:21)
[2016-08-06] MEDS: RIVASTIGMINE 1.5 MG CAPSULE. PO SCH (08:21)
[2016-08-06 10:25] VITALS: BP 130/64
--- NOTE | 2016-08-06 11:53 | PDOC2 ---
PALLIATIVE CARE Palliative Care Note Palliative Care Spoke with Elia/son of patient. Informed that patient not accepted at [facility] and [facility]. Patient could return to [facility]. Elia deferred to his brother Last. Spoke with Last--informed him of the same. Discussed choices of [facility] or Home with Hospice. Patient can not go home with Hospice. Last requested to check in with [facility] for acceptance with Hospice. ). Call placed to this facility. Message left with Allison Clark Clinical Intake to return call. Last informed that options are limited and could be discharged to [facility] if no other facility located today. [id number] Spoke with Allison Clark at [facility]. She has communicated with family and provided them with application. This process would take 48-72 hours minimum. Valencia MORE has spoke with family. Patient is being discharged back to [facility] with hospice today. She has spoke with son. Son is in agreement with plans. LILIA RIDLEY Aug 06, 2016 11:53
[2016-08-06] MEDS: ANTI-COAG MONITOR BY PHARMACY. MC PRN (13:01)
[2016-08-06 14:30] VITALS: BP 128/76
--- NOTE | 2016-08-06 15:21 | PDOC ---
PROGRESS NOTES Assessment Assessment PD ET Metabolic encephalopathy. Dementia, severe. UTI HTN HLD CHF COPD DM SSS Renal disease. Skin ulcers. Obesity. RECOMMENDATIONS/PLAN: Continue Sinemet 25/100 mg tid. Beta-Dariana for ET Benzo helps ET, but may depress mental status. Treat medical diseases. Hospice care per family. HISTORY OF THE PRESENT ILLNESS: 80-y-old male patient with above complicated medical diseases has been having significant tremors in UE and LE, so Neurology was called for consultation. Patient is unable to provide information. PD tremors improved since 08/05, but not ET tremors. PAST MEDICAL HISTORY: Please see above. PAST SURGERY HISTORY: Tonsillectomy Knee surgery, ALLERGY: Reviewed. MEDICATIONS: Refer to MAR FAMILY HISTORY: H Non contributory. SOCIAL HISTORY: He came from nursing facility. Denies current smoking, drinking, and illicit drug use. REVIEW OF SYSTEMS: Constitutional: Chronically sick. Head: No recent traumatic brain or head injury. Skin: ulcers noted. Ear: No infection. Eyes: No vision loss. Nose: No bleeding or purulent discharges. Hearing: Hearing decrease. Neck: No injury recently. Cardiac: CAD, HTN, HLD. Pulmonary: COPD. GI: No GI ulcer, GI bleeding. Urinary/genital: UTI. Endocrinologic: Diabetes Mellitus, hypothyroidism. Skeletomuscular: Generalized weakness. Neurological: see HP. Psychiatric: Denies drug use/abuse. Otherwise, not [id number] review of systems. PHYSICAL EXAMINATION: General appearance is in subacute on chronic distress. HEENT: Normocephalic and nontraumatic. Eyes, nose, ears, and throat are unremarkable. Neck is supple. No lymphadenopathy. No crepitus. Cardiovascular: S1, S2, regular rate and rhythm. Pulmonary: Breathing sounds decreased to auscultation bilaterally. Abdomen: Bowel sounds are positive. Extremities: No rash, lesions, or edema. No restriction of range of motion NEUROLOGICAL EXAMINATION: Awake. Not oriented to time, place but may know persons. PERRL. EOMI. CN: no acute focal findings. Muscle tone: increased in all extremities. Muscle strength: 4+ UE, 3- LE DTR: 1+ Plantar reflex: Neutral response bilaterally Gait: Unable to walk. Sensory exam: no acute abnormal findings. Not able to access cerebellar signs due to not follow commands.. He was unable to perform F-T-N test due to tremors. Objective Objective Vital Signs Date Time Temp Pulse Resp B/P Pulse Ox O2 Delivery O2 Flow Rate FiO2 08/06/16 10:25 97.5 99 18 130/64 98 Room Air 97.5 08/05/16 20:00 2.0 Intake and Output 08/06/16 07:00 Intake Total 1105 ml Output Total 175 ml Balance 930 ml Intake Oral 1105 ml Output Urine Total 175 ml # Voids 2 Vitals Signs Vitals VS - Last 72 Hours, by Label Date Time Temp Pulse Resp B/P Pulse Ox O2 Delivery O2 Flow Rate FiO2 08/06/16 10:25 97.5 99 18 130/64 98 Room Air 97.5 08/06/16 08:21 101 142/77 08/06/16 08:20 101 142/77 08/06/16 08:00 Room Air 08/06/16 07:20 97.5 101 18 142/77 97 Room Air 97.5 08/06/16 03:00 97.7 106 18 162/88 98 Room Air 97.7 08/05/16 23:00 98.1 99 18 179/85 96 Room Air 98.1 08/05/16 20:00 Room Air 2.0 08/05/16 19:00 98.7 98 18 134/71 98 Room Air 98.7 08/05/16 15:00 99.2 102 20 129/64 94 Room Air 99.2 08/05/16 10:30 98.3 98 22 99/70 96 Room Air 98.3 08/05/16 09:21 104 140/73 08/05/16 09:17 104 140/73 08/05/16 08:10 98.4 104 20 140/73 97 Room Air 98.4 Laboratory Laboratory Microbiology 07/27/16 Blood Culture - Final, Complete NO GROWTH AFTER 5 DAYS 07/27/16 Urine Culture - Final, Complete 07/27/16 Urine Culture Result 1 (JACKELINE) - Final, Complete 07/27/16 Antimicrobic Susceptibility - Final, Complete Comment Review of Relevant I have reviewed the following items zeke (where applicable) has been applied. MONROE HUYNH MD Aug 06, 2016 15:21
== END 2016-08-06 16:00 | DRG 189 ==
LOC: ER 21:06 → 1 WEST ICU 22:00 → 6 SOUTH 07-29 15:58 → 5 NORTH 08-02 17:30
PROVIDERS: ADMIT Internal Medicine; ATTEND Internal Medicine
DX: J96.01 Acute respiratory failure with hypoxia (principal); J18.9 Pneumonia, unspecified organism; G92 Toxic encephalopathy; L89.314 Pressure ulcer of right buttock, stage 4; L89.324 Pressure ulcer of left buttock, stage 4; J44.0 Chronic obstructive pulmonary disease with (acute) lower respiratory infection; I13.0 Hypertensive heart and chronic kidney disease with heart failure and stage 1 through stage 4 chronic kidney disease, or unspecified chronic kidney disease; E87.0 Hyperosmolality and hypernatremia; I50.32 Chronic diastolic (congestive) heart failure; N39.0 Urinary tract infection, site not specified; E03.9 Hypothyroidism, unspecified; E11.22 Type 2 diabetes mellitus with diabetic chronic kidney disease; E66.9 Obesity, unspecified; E78.00 Pure hypercholesterolemia, unspecified; E78.5 Hyperlipidemia, unspecified; E87.6 Hypokalemia; F03.90 Unspecified dementia, unspecified severity, without behavioral disturbance, psychotic disturbance, mood disturbance, and anxiety; I48.91 Unspecified atrial fibrillation; I49.5 Sick sinus syndrome; M17.0 Bilateral primary osteoarthritis of knee; N18.9 Chronic kidney disease, unspecified; N40.0 Benign prostatic hyperplasia without lower urinary tract symptoms; Z51.5 Encounter for palliative care; Z66 Do not resuscitate; Z74.01 Bed confinement status; Z85.46 Personal history of malignant neoplasm of prostate; Z87.891 Personal history of nicotine dependence; Z95.0 Presence of cardiac pacemaker; Z86.718 Personal history of other venous thrombosis and embolism; Z68.31 Body mass index [BMI] 31.0-31.9, adult; Z98.41 Cataract extraction status, right eye; Z98.42 Cataract extraction status, left eye; Z79.899 Other long term (current) drug therapy
CPT/HCPCS: 36415; 51702; 70450; 71010; 72125; 72170; 73030; 73080; 73090; 73130; 80048; 80053; 80076; 80202; 81001; 82140; 82550; 82947; 83605; 83735; 83880; 84443; 84484; 85027; 85610; 85730; 87040; 87086; 87186; 87641; 87804; 93005; 96361; 96374; 96375; J1956; J2543; J3370; J7040; J7050; 92526; 92610; 97110; 97530; 97535; 97606; 99285-25; J7030

== ENCOUNTER 2016-08-20 00:28 | Inpatient (IN) | payer MEDICARE, OTHER ==
[~2016-08-20] VITALS: Ht 185.4 cm; Wt 97.1 kg
[~2016-08-20 00:28] MED LIST changes: +APIX5TAB PO; +ASCO500T2 PO; +ATOR10TA60 PO; +DEXT38GE2 PO; +ESCI20TA PO; +FERR325T20 PO; +FOLI0.8T3 PO; +HALO0.5T PO; +INSU200I SQ; +LACT1CAP2 PO; +MAGN500C11 PO; +MELA1TAB13 PO; +OXYC10SY PO; +RIVA1.5C4 PO; +SUCR1TAB PO; +[UNRECOGNIZED DRUG - OTHER] PO
[2016-08-20 01:04] LABS: BASO % 0 % (0-3); EOS % 1 % (0-3); HEMATOCRIT 28.2 % (39.0-53.0); HEMOGLOBIN 9.1 g/dL (13.0-17.5); LYMPH # 2.2 x10^3/uL (1.0-4.8); LYMPH % 22 % (24-48); MEAN CORPUSCULAR HEMOGLOBIN 30 pg (25-35); MEAN CORPUSCULAR HGB CONC 32 g/dL (31-37); MEAN CORPUSCULAR VOLUME 91 fL (79-100); MONO % 13 % (0-9); NEUT % 64 % (31-73); PLATELET COUNT 247 x10^3/uL (140-400); RED BLOOD COUNT 3.08 x10^6/uL (4.30-5.70); RED CELL DISTRIBUTION WIDTH 19.4 % (11.5-14.5); WHITE BLOOD COUNT 10.2 x10^3/uL (4.0-11.0)
[2016-08-20 01:13] LABS: CALCIUM 9.2 mg/dL (8.5-10.1); CREATININE 1.4 mg/dL (0.7-1.3); GFR 48.6; POTASSIUM 4.5 mmol/L (3.5-5.1)
[2016-08-20 01:14] LABS: INR 2.1 (0.8-1.1); PROTHROMBIN TIME PATIENT 22.7 SEC (11.7-14.0)
[2016-08-20 01:19] LABS: ALBUMIN 1.7 g/dL (3.4-5.0); DIRECT BILIRUBIN 0.3 mg/dL (0.0-0.2); TOTAL PROTEIN 6.2 g/dL (6.4-8.2)
--- NOTE | 2016-08-20 01:43 | PHYS DOC ---
Past Medical History Past Medical History: Arthritis, CHF, COPD, Dementia, Diabetes-Type II, High Cholesterol, Hypertension, Hypothyroid, Renal Disease, Other Additional Past Medical Histor: PRESSURE ULCER L BUTTOCK, SICK SINUS, BPH Past Surgical History: Other Additional Past Surgical Histo: UNKNOWN Alcohol Use: None Drug Use: None Adult General Chief Complaint Chief Complaint: SHORTNESS OF BREATH HPI HPI Patient is a 81 year old male who presents by EMS from nursing facility for low oxygen on pulse ox. It is unclear why this was checked, but he has been on 2L NC this evening and this is new. He did receive evening oxycodone and ativan. No other pertinent history is provided by EMS or [place] phone report. No family is at bedside. Review of Systems Review of Systems Unable to obtain secondary to mental status Allergies Allergies Allergies Coded Allergies Type Severity Reaction Last Updated Verified I S O L A T I O N *CONTACT* Allergy Unknown 07/31/16 Yes No Known Medication Allergies Allergy Unknown 06/04/16 Yes Physical Exam Physical Exam Constitutional: Well developed, well nourished, no acute distress, non-toxic appearance. [] HENT: Normocephalic, atraumatic, bilateral external ears normal, oropharynx dry , no oral exudates, nose normal. [] Eyes: PERRLA, EOMI, conjunctiva normal, no discharge. [] Neck: Normal range of motion, no tenderness, supple, no stridor. [] Cardiovascular:Heart rate regular rhythm [] Lungs & Thorax: Bilateral breath sounds clear to auscultation [] Abdomen: Bowel sounds normal, soft, no tenderness. [] Skin: Warm, dry, no erythema, no rash. [] Back: No tenderness, no CVA tenderness. [] Extremities: No tenderness, ROM intact, no edema. [] Neurologic: Alert, moves arms equally with purpose, opens eyes spontaneously, moans. [] Psychologic: Unable to assess secondary to mental status. [] Current Patient Data Vital Signs Vital Signs Date Time Temp Pulse Resp B/P Pulse Ox O2 Delivery O2 Flow Rate FiO2 08/20/16 01:30 104 124/60 90 Room Air 08/20/16 01:12 98.6 28 2 98.6 Lab Values Laboratory Tests Test 08/20/16 00:50 White Blood Count 10.2x10^3/uL (4.0-11.0) Red Blood Count 3.08x10^6/uL (4.30-5.70) L Hemoglobin 9.1g/dL (13.0-17.5) L Hematocrit 28.2% (39.0-53.0) L Mean Corpuscular Volume 91fL (79-100) Mean Corpuscular Hemoglobin 30pg (25-35) Mean Corpuscular Hemoglobin Concent 32g/dL (31-37) Red Cell Distribution Width 19.4% (11.5-14.5) H Platelet Count 247x10^3/uL (140-400) Neutrophils (%) (Auto) 64% (31-73) Lymphocytes (%) (Auto) 22% (24-48) L Monocytes (%) (Auto) 13% (0-9) H Eosinophils (%) (Auto) 1% (0-3) Basophils (%) (Auto) 0% (0-3) Neutrophils # (Auto) 6.6x10^3uL (1.8-7.7) Lymphocytes # (Auto) 2.2x10^3/uL (1.0-4.8) Monocytes # (Auto) 1.4x10^3/uL (0.0-1.1) H Eosinophils # (Auto) 0.1x10^3/uL (0.0-0.7) Basophils # (Auto) 0.0x10^3/uL (0.0-0.2) Prothrombin Time 22.7SEC (11.7-14.0) H Prothrombin Time INR 2.1 (0.8-1.1) H PTT 33SEC (24-38) Sodium Level 155mmol/L (136-145) H Potassium Level 4.5mmol/L (3.5-5.1) Chloride Level 120mmol/L (98-107) H Carbon Dioxide Level 27mmol/L (21-32) Anion Gap 8 (6-14) Blood Urea Nitrogen 32mg/dL (8-26) H Creatinine 1.4mg/dL (0.7-1.3) H Estimated GFR (Cockcroft-Gault) 48.6 Glucose Level 105mg/dL (70-99) H Calcium Level 9.2mg/dL (8.5-10.1) Total Bilirubin 1.0mg/dL (0.2-1.0) Direct Bilirubin 0.3mg/dL (0.0-0.2) H Aspartate Amino Transferase (AST) 24U/L (15-37) Alanine Aminotransferase (ALT) 27U/L (16-63) Alkaline Phosphatase 98U/L (46-116) Troponin I Quantitative 0.042ng/mL (0.000-0.055) TF-Bvd-S-Type Natriuretic Peptide 2156pg/mL (0-449) H Total Protein 6.2g/dL (6.4-8.2) L Albumin 1.7g/dL (3.4-5.0) L Laboratory Tests 08/20/16 00:50 Laboratory Tests 08/20/16 00:50 EKG EKG EKG as interpreted by me as atrial fibrillation, rate 96, no ST-T changes Radiology/Procedures Radiology/Procedures Chest x-ray as interpreted by me showing persistent left lung haziness concerning for infection versus other Course & Med Decision Making Course & Med Decision Making Pertinent Labs and Imaging studies reviewed. (See chart for details) Laboratory evaluation reveals dehydration with hypernatremia and acute renal insufficiency. Has persistent haziness in left lung field with 2 L nasal cannula oxygen requirement. Will treat for HCAP and dehydration. Discussed case with Dr. Abbott, who will admit. Dragon Disclaimer Dragon Disclaimer This electronic medical record was generated, in whole or in part, using a voice recognition dictation system. Departure Departure Impression: Primary Impression: HCAP (healthcare-associated pneumonia) Additional Impression: Dehydration Disposition: ADMITTED INPATIENT Condition: STABLE Referrals: CASSY ABBOTT MD (PCP) Problem Qualifiers Sarahi MONTEZ MD Aug 20, 2016 01:43
[2016-08-20] MEDS ORDERED: PIP/TAZO PER PHARMACY MC PRN (01:45)
[2016-08-20] MEDS ORDERED: LEVOFLOXACIN PER PHARMACY MC PRN (01:45)
[2016-08-20] MEDS ORDERED: POTASSIUM CL 20MEQ D5-0.45NACL 1,000 ML IV ONE (02:00)
[2016-08-20] MEDS ORDERED: VANCOMYCIN 2 GM in IV NORMAL SALINE 500ML BAG 500 ML IV ONE (02:00)
[2016-08-20 02:10] LABS: BILIRUBIN,URINE NEGATIVE (NEG); GLUCOSE,URINE NEGATIVE (NEG); NITRITE,URINE POSITIVE (NEG); PH,URINE 6.5; PROTEIN,URINE 30 mg/dL (NEG-TRACE); UROBILINOGEN,URINE 0.2 mg/dL (0.2 mg/dL)
[2016-08-20 02:18] LABS: BACTERIA,URINE MANY /HPF (0-FEW); RBC,URINE OCC /HPF (0-2); SQUAMOUS EPITHELIAL CELL,UR OCC /LPF; WBC,URINE TNTC /HPF (0-4); YEAST,URINE PRESENT /HPF
[2016-08-20] MEDS ORDERED: OXYC5TAB PO (02:55)
[2016-08-20] MEDS ORDERED: FOLI0.8T3 PO (02:55)
[2016-08-20] MEDS ORDERED: ACET325T9 PO (02:55)
[2016-08-20] MEDS ORDERED: MIRT15TA PO (02:55)
[2016-08-20 03:00] VITALS: BP 86/62
[2016-08-20] MEDS ORDERED: POTA20LI PO (03:10)
[2016-08-20] MEDS ORDERED: LORA0.5T PO (03:10)
[2016-08-20] MEDS ORDERED: FLUC100T7 PO (03:21)
[2016-08-20] MEDS ORDERED: MINE120C TP (03:21)
[2016-08-20] MEDS ORDERED: ARGI1POW19 PO (03:21)
[2016-08-20] MEDS ORDERED: DEXTROSE 50% 25 GM / 50ML DISP.SYRIN. IV PRN ×2 (03:45→13:15)
[2016-08-20] MEDS: VANCOMYCIN PER PHARMACY MC PRN ×2 (03:55→14:00)
[2016-08-20] MEDS: PIPERACILLIN/TAZOBACTAM 3.375 GM in IV NORMAL SALINE 50ML 50 ML IV SCH ×4 (05:35→23:27)
[2016-08-20 07:00] VITALS: BP 99/64
--- NOTE | 2016-08-20 07:18 | RAD ---
Portable chest, 08/20/2016: History: Hypoxemia Comparison is made to a study from 08/01/2016. A left-sided transvenous pacemaker remains in place with a single lead extending into the right ventricle. The heart is enlarged. There is calcific plaquing of the aorta. The right chest remains clear. Patchy left lung infiltrates persist. There is blunting of the left lateral costophrenic angle compatible with a small amount pleural fluid versus scarring. No new abnormality is seen. IMPRESSION: 1. Cardiomegaly and aortic atherosclerosis. 2. Moderate left pleural/parenchymal opacities which may reflect pneumonia. The possibility of underlying tumor cannot be excluded. CT scanning may be useful for further evaluation, if not already performed elsewhere. 3. No significant change since 08/01/2016.
--- NOTE | 2016-08-20 09:57 | EKG ---
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
--- NOTE | 2016-08-20 10:23 | ACF ---
Admission Forms Criteria PNEUMONIA, HOSPITAL-ACQUIRED AND ATELECTASIS Clinical Indications for Inpatient Care (Place 'X' for any and all applicable criteria): Ongoing inpatient care may be indicated for hospital-acquired atelectasis or pneumonia[N] with ANY ONE of the following(2)(5)(47)(48)(49): [ ]I. Mechanical ventilation [N] [ ]II. Temperature less than 35 degrees C (95 degrees F) or greater than 39.5 degrees C (103.1 degrees F) [ ]III. Tachypnea (eg, respiratory rate greater than 30 breaths per minute) [ ]IV. Hemodynamic instability [ ]V. Respiratory distress [X]. Significant hypoxemia as indicated by ANY ONE of the following: [ ]a) Previously normal respiratory status with ANY ONE of the following: [ ]i) SaO2 less than 90% or PO2 less than 60 mm Hg (8.0 kPa )) on room air [ ]ii) Oxygen required to keep SaO2 greater than 90% [ ]b) Chronic baseline hypoxemia with significant deterioration (eg, O2 saturation decrease more than 5%) [X]c) Required supplemental oxygen performable only in acute inpatient setting [ ]VII. Significant hypoventilation as indicated by ANY ONE of the following: [ ]a) Previously normal with PCO2 greater than 42 mm Hg (5.6 kPa) and pH less than 7.35 [ ]b) Documented PCO2 increase greater than 5 mm Hg (0.7 kPa) from disease baseline [ ]VIII.Severe secretion production requiring frequent suctioning Extended stay beyond goal length of stay for primary condition may be needed until ALL of the following are present(28)(29): [ ]a) Microbiologic cause of infection identified and appropriate antibiotic treatment in place, or satisfactory clinical response to empiric antibiotic therapy [ ]b) Hemodynamic stability [ ]c) No requirement for supplemental oxygen performable only in acute inpatient setting [ ]d) Chest tube absent or chest catheter management regimen established for next level of care [ ]e) Suctioning, pulmonary toilet, or other therapy performable at a lower level of care [ ]f) Fever absent, improved, or manageable at lower level of care [ ]g) Medical comorbidities manageable at a lower level of care The original [facility] content created by Francisco Haley has been revised. The portions of the content which have been revised are identified through the use of italic text or in bold, and [facility] has neither reviewed nor approved the modified material. All other unmodified content is copyright [facility] Please see references footnoted in the original [facility] edition 2016 Admission Criteria Met?: Yes ZEKE LYNN Aug 20, 2016 10:23
[2016-08-20 11:00] VITALS: BP 107/61
[2016-08-20] MEDS ORDERED: LORAZEPAM 0.5 MG TABLET. PO PRN (13:00)
[2016-08-20] MEDS ORDERED: OXYCODONE IR 5 MG TABLET. PO PRN (13:00)
[2016-08-20] MEDS: INSULIN ASPART 300 UNITS/3 ML INSULN.PEN SQ SCH ×2 (14:00→16:59)
[2016-08-20] MEDS: CARBIDOPA/LEVODOPA 25/100MG TABLET PO SCH ×2 (14:25→20:58)
[2016-08-20] MEDS: ACETAMINOPHEN 325 MG TABLET. PO SCH ×2 (14:25→20:59)
[2016-08-20] MEDS: MINERAL OIL/PETROLATUM TOPICAL CREAM 113GM JAR. TP SCH ×2 (14:25→21:00)
[2016-08-20] MEDS: FLUCONAZOLE 100 MG TABLET. PO SCH (14:25)
[2016-08-20] MEDS: FAMOTIDINE 20 MG TABLET. PO SCH (14:25)
[2016-08-20] MEDS: MAGNESIUM OXIDE 400 MG TABLET PO SCH ×2 (14:25→21:00)
[2016-08-20] MEDS: TAMSULOSIN 0.4 MG CAP.ER.24H. PO SCH (14:25)
[2016-08-20] MEDS: METOPROLOL SUCC 24HR ER 25 MG TAB.ER.24H. PO SCH ×2 (14:26→20:59)
--- NOTE | 2016-08-20 14:30 | HP ---
ADMIT DATE: 08/20/2016 HISTORY OF PRESENT ILLNESS: The patient is an 81-year-old, male patient, a resident at [facility] who was brought to the Emergency Room as he was hypoxic. His oxygen saturation was only 60% according to the nursing staff and apparently oxygen supplementation did not help and therefore the patient was brought to the Emergency Room, was found to have left lower lobe pneumonia. Also his sodium was extremely high, 155, and was admitted for treatment with IV antibiotics for healthcare-associated pneumonia and to rehydrate him. PAST MEDICAL HISTORY: Significant for atrial fibrillation with sick sinus syndrome for which he has a permanent pacemaker placed. He is also known to have hypertension, hyperlipidemia, hypothyroidism, diastolic congestive heart failure, chronic obstructive pulmonary disease, chronic kidney disease, benign prostatic hypertrophy and prostate cancer has type 2 diabetes. He is also known to have severe osteoarthritis of both knee joints and right hip joint as well as stage 4 left gluteal decubitus ulcer, status post surgical debridement and was on a wound vacuum assisted closure device. He has also right upper extremity DVT for which he is on apixaban. PAST SURGICAL HISTORY: Significant for bilateral cataract extraction, transurethral resection of the prostate, left inguinal hernia repair, appendectomy and permanent pacemaker placement as well as surgical debridement of his left gluteal decubitus ulcer. He has also deep vein thrombosis involving his right upper extremity for which he is on Eliquis and has had recurrent syncopal episode extensively investigated at [facility] without any cause found. FAMILY HISTORY: Noncontributory. SOCIAL HISTORY: He is ; however, has been on various institutions for the last 4 months. He was initially at [facility], was admitted to [facility], transferred to [facility] and from there to [facility] in [place] and finally to [facility] and from where he was transferred to [facility] and has been residing there since he was discharged from this facility. He apparently used to smoke cigars, but does not drink alcohol or use any recreational drugs. 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 ALLERGIES: He has no known drug allergies. MEDICATIONS: He is on following medications: Acetaminophen 650 mg 3 times a day, acetaminophen 650 mg every 4 hours as needed, apixaban 5 mg twice a day, ____ powder 1 p.o. b.i.d., ascorbic acid 500 mg twice a day. He is on glucose gel as needed for hypoglycemia, escitalopram oxalate 20 mg once a day, famotidine 20 mg once a day, ferrous sulfate 325 mg twice a day, fluconazole 100 mg once a day for 7 days. He is on folic acid and Vitamin B complex 1 tablet once a day. He is on insulin lispro as insulin sliding scale, lactobacillus acidophilus 1 tablet once a day, lorazepam 0.5 mg every 4 hours as needed, magnesium oxide 400 mg 3 times a day, melatonin/ pyridoxine 1 tablet at bedtime, metoprolol succinate 25 mg twice a day, mineral oil with petrolatum applied topically for dry skin, ____ mg at bedtime, oxycodone 5 mg every 4 hours, potassium chloride 20 mEq and 15 mL liquid solution twice a day, rivastigmine 1.5 mg p.o. b.i.d., sucralfate 1 gram b.i.d. and tamsulosin 0.4 mg at bedtime. REVIEW OF SYSTEMS: As per history of present illness. The patient is demented. PHYSICAL EXAMINATION: GENERAL: On arrival to the Emergency Room, the patient was pale, but no jaundice, cyanosis or thyromegaly. No jugular venous distention. No limb edema. VITAL SIGNS: His heart rate was 98, blood pressure was 119/63, temperature was 98.5, respiratory rate was 28 and oxygen saturation apparently was only 60% at the nursing facility. He was 95% on 2 liters of oxygen when arrived here. HEAD, EYES, EARS, NOSE AND THROAT: Showed normocephalic, atraumatic. NECK: Supple. HEART: Showed normal first and second sounds with no gallop, rub or murmur. CHEST: Clear to auscultation. No crepitation or rhonchi. ABDOMEN: Distended, soft, nontender. No guarding or rigidity. No organomegaly. All hernial orifices intact. Bowel sounds normal. NEUROLOGIC: He was demented without obvious lateralizing sign. All his cranial nerves are intact. He moves his upper extremities to a much greater extent than lower extremities. He has tremors seen for which he was seen by the neurologist who thinks that these are benign essential tremor with possible Parkinson disease. LABORATORY DATA: On arrival showed that his white cell count was 10,000, hemoglobin 9.1, hematocrit 28, MCV 91, and platelet count of 247,000. Serum sodium was 155, potassium 4.5, chloride 120, bicarbonate 27, anion gap of 8, BUN 32, creatinine 1.4. Estimated GFR was 48 mL per minute, his glucose was 105, calcium was 9.2. Total bilirubin, AST, ALT, alkaline phosphatase were normal. His total protein was 6.2, albumin was 1.7. His chest x-ray showed that he has cardiomegaly with aortic atherosclerosis, moderate left-sided pleural effusion, parenchymal opacities, which may reflect pneumonia. The possibility of underlying tumor cannot be excluded. CT scan may be useful for further evaluation if not already performed elsewhere. ASSESSMENT: 1. The patient was admitted with acute hypoxic respiratory failure. 2. Healthcare-associated pneumonia. 3. Dehydration with marked hypernatremia. 4. Severe protein calorie malnutrition. PLAN: My plan is to continue with IV antibiotic. Continue with all his medications. He also was diagnosed with yeast urinary tract infection for which [facility]. I will arrange for him to have also CT scan of the chest without contrast and continue with D5W as he has marked water deficit. CASSY ABBOTT MD DR: MINA/agustin JOB#: [id number] / [id number]
[2016-08-20] MEDS: IV DEXTROSE 5% 1,000 ML IV SCH (14:34)
[2016-08-20] MEDS: ESCITALOPRAM 5 MG TABLET. PO SCH (14:34)
--- NOTE | 2016-08-20 16:40 | RAD ---
CT of the chest without contrast, 08/20/2016: History: Cough, shortness of breath, possible neoplasm Noncontrast scans were obtained. The heart is moderately enlarged. A transvenous pacing lead extends into the right ventricle. There is calcific plaquing of the thoracic aorta. The ascending aorta is at the upper limits of normal measuring 4 cm in width. Scattered coronary artery calcifications are present. No mediastinal adenopathy is seen. There is moderate atelectasis/infiltrate in the left lower lobe. There are moderate scattered parenchymal opacities in the left upper lobe. The largest of these measures 3 x 4 cm and abuts the oblique fissure posterolaterally. A couple of small thick-walled air-containing structures in the left upper lobe may represent bronchiectasis. There appears to be a trace amount of pleural fluid on the left. There is an elongated opacity in the medial aspect of the right middle lobe with underlying bronchiectasis. There are several additional tiny nodular opacities in the lateral aspect of the right middle lobe and in the right lower lobe. No right pleural fluid is evident. There is mild bilateral renal cortical scarring. Moderate multilevel degenerative change is present in the spine. IMPRESSION: 1. Moderate left lower lobe atelectasis/infiltrate with a trace amount of left-sided pleural fluid. Pneumonia is suspected. 2. Additional scattered bilateral parenchymal opacities with a component of bronchiectasis evident in the right middle lobe. Diagnostic considerations include organizing pneumonia, atypical pneumonia such as fungal disease, chronic eosinophilic pneumonitis or metastatic disease. 3. Cardiomegaly with calcific plaquing of the aorta and coronary arteries. PQRS Compliance Statement: One or more of the following individualized dose reduction techniques were utilized for this examination: 1. Automated exposure control 2. Adjustment of the mA and/or kV according to patient size 3. Use of iterative reconstruction technique
[2016-08-20] MEDS: FERROUS SULFATE 325 MG TABLET PO SCH (16:57)
[2016-08-20] MEDS: SUCRALFATE 1 GM TABLET. PO SCH ×2 (16:57→21:00)
[2016-08-20] MEDS: POTASSIUM CHLORIDE 20 MEQ/15 ML ORAL LIQUID. PO SCH (16:57)
[2016-08-20 19:48] VITALS: BP 96/70
[2016-08-20] MEDS: MIRTAZAPINE 15 MG TABLET PO SCH (20:58)
[2016-08-20] MEDS: APIXABAN 5 MG TABLET. PO SCH (20:59)
[2016-08-20] MEDS: ASCORBIC ACID 500 MG TABLET PO SCH (21:00)
[2016-08-20] MEDS ORDERED: MELATONIN PO SCH (21:00)
[2016-08-20] MEDS: RIVASTIGMINE 1.5 MG CAPSULE. PO SCH (21:00)
[2016-08-20] MEDS ORDERED: PYRIDOXINE PO SCH (21:00)
[2016-08-20 23:21] VITALS: BP 100/47
--- NOTE | 2016-08-21 01:35 | PN ---
DATE: 08/20/2016 SUBJECTIVE: The patient is resting, slightly propped up in bed, continued to be very tremulous, confused; however, he denied any chest pain or shortness breath. Denied any cough, phlegm or hemoptysis. PHYSICAL EXAMINATION: GENERAL: When I examined him, he looked pale, but no jaundice, cyanosis or thyromegaly. No jugular venous distention. No limb edema. VITAL SIGNS: His heart rate was 96, blood pressure was 99/64, temperature was 97.5, respiratory rate was 21 and oxygen saturation was 92% on 3 liters of oxygen. The rest of clinical examination is unremarkable, has not changed. LABORATORY DATA: His lab work today showed a white cell count of 10,000, hemoglobin 9, hematocrit 28, MCV 91 and platelet count of 247,000. His chemistry showed his serum sodium was high at 155, potassium 4.5, chloride 120, bicarbonate 27, BUN of 32, creatinine 1.4. ASSESSMENT AND PLAN: The patient was admitted with healthcare-associated pneumonia with left lower lobe infiltrate, dehydration, hypernatremia and severe protein-calorie malnutrition. My plan is to continue with IV antibiotic, continue with all his other medications. He has also yeast urinary tract infection for which he was on Diflucan. I will arrange for him to have a CT scan of the chest without contrast. Continue with D5W and continue with his pureed diet with nectar thickened liquid and repeat his lab work tomorrow. CASSY ABBOTT MD DR: MINA/agustin JOB#: [id number] / [id number]
[2016-08-21] MEDS: VANCOMYCIN 1.5 GM in IV NORMAL SALINE 500ML BAG 500 ML IV SCH (02:18)
[2016-08-21 03:00] VITALS: BP 135/64
[2016-08-21] MEDS: IV DEXTROSE 5% 1,000 ML IV SCH ×2 (05:16→21:03)
[2016-08-21] MEDS: PIPERACILLIN/TAZOBACTAM 3.375 GM in IV NORMAL SALINE 50ML 50 ML IV SCH (05:17)
[2016-08-21 05:25] LABS: BASO % 0 % (0-3); EOS % 1 % (0-3); HEMATOCRIT 29.6 % (39.0-53.0); HEMOGLOBIN 9.6 g/dL (13.0-17.5); LYMPH # 1.2 x10^3/uL (1.0-4.8); LYMPH % 11 % (24-48); MEAN CORPUSCULAR HEMOGLOBIN 30 pg (25-35); MEAN CORPUSCULAR HGB CONC 33 g/dL (31-37); MEAN CORPUSCULAR VOLUME 91 fL (79-100); MONO % 8 % (0-9); NEUT % 79 % (31-73); PLATELET COUNT 205 x10^3/uL (140-400); RED BLOOD COUNT 3.25 x10^6/uL (4.30-5.70); RED CELL DISTRIBUTION WIDTH 19.3 % (11.5-14.5)
[2016-08-21 05:49] LABS: ALBUMIN 1.5 g/dL (3.4-5.0); ALBUMIN/GLOBULIN RATIO 0.3 (1.0-1.7); ALK PHOS 99 U/L (46-116); ANION GAP 10 (6-14); AST (SGOT) 22 U/L (15-37); BLOOD UREA NITROGEN 26 mg/dL (8-26); BUN/CREATININE RATIO 20 (6-20); CALCIUM 8.8 mg/dL (8.5-10.1); CARBON DIOXIDE 25 mmol/L (21-32); CHLORIDE 119 mmol/L (98-107); CREATININE 1.3 mg/dL (0.7-1.3); GLUCOSE 111 mg/dL (70-99); SODIUM 154 mmol/L (136-145); TOTAL BILIRUBIN 1.2 mg/dL (0.2-1.0); TOTAL PROTEIN 6.3 g/dL (6.4-8.2)
[2016-08-21 06:24] LABS: ALT (SGPT) < 6 U/L (16-63)
[2016-08-21 07:00] VITALS: BP 107/52
[2016-08-21] MEDS: SUCRALFATE 1 GM TABLET. PO SCH ×4 (07:30→21:00)
[2016-08-21] MEDS: POTASSIUM CHLORIDE 20 MEQ/15 ML ORAL LIQUID. PO SCH ×2 (08:00→17:00)
[2016-08-21] MEDS: FERROUS SULFATE 325 MG TABLET PO SCH ×2 (08:00→17:00)
[2016-08-21] MEDS: INSULIN ASPART 300 UNITS/3 ML INSULN.PEN SQ SCH ×3 (08:00→17:00)
[2016-08-21] MEDS: TAMSULOSIN 0.4 MG CAP.ER.24H. PO SCH (09:00)
[2016-08-21] MEDS: CARBIDOPA/LEVODOPA 25/100MG TABLET PO SCH ×3 (09:00→21:00)
[2016-08-21] MEDS: MAGNESIUM OXIDE 400 MG TABLET PO SCH ×3 (09:00→21:00)
[2016-08-21] MEDS: ASCORBIC ACID 500 MG TABLET PO SCH ×2 (09:00→21:00)
[2016-08-21] MEDS ORDERED: FOLIC/VIT B COMP W-C (RENAL) TABLET. PO SCH (09:00)
[2016-08-21] MEDS: RIVASTIGMINE 1.5 MG CAPSULE. PO SCH ×2 (09:00→21:00)
[2016-08-21] MEDS: FLUCONAZOLE 100 MG TABLET. PO SCH (09:00)
[2016-08-21] MEDS: METOPROLOL SUCC 24HR ER 25 MG TAB.ER.24H. PO SCH ×2 (09:00→21:00)
[2016-08-21] MEDS: MINERAL OIL/PETROLATUM TOPICAL CREAM 113GM JAR. TP SCH ×2 (09:00→21:00)
[2016-08-21] MEDS: APIXABAN 5 MG TABLET. PO SCH ×2 (09:00→21:00)
[2016-08-21] MEDS: ACETAMINOPHEN 325 MG TABLET. PO SCH ×3 (09:00→21:00)
[2016-08-21] MEDS: ESCITALOPRAM 5 MG TABLET. PO SCH (09:00)
[2016-08-21] MEDS: LACTOBACILLUS ACIDOPH & BULGAR 1 TABLET. PO SCH (09:00)
[2016-08-21] MEDS: FOLIC/VIT B COMP W-C (RENAL) TABLET. PO SCH (09:00)
[2016-08-21] MEDS: FAMOTIDINE 20 MG TABLET. PO SCH (09:00)
[2016-08-21 11:00] VITALS: BP 121/63
[2016-08-21] MEDS: VANCOMYCIN PER PHARMACY MC PRN (13:16)
[2016-08-21] MEDS: PIPERACILLIN/TAZOBACTAM 4.5 GM in IV NORMAL SALINE 100ML 100 ML IV SCH ×2 (14:52→18:40)
[2016-08-21 15:00] VITALS: BP 115/56
[2016-08-21 19:00] VITALS: BP 104/43
[2016-08-21] MEDS: MIRTAZAPINE 15 MG TABLET PO SCH (21:00)
[2016-08-21 23:00] VITALS: BP 110/53
[2016-08-22] MEDS: PIPERACILLIN/TAZOBACTAM 4.5 GM in IV NORMAL SALINE 100ML 100 ML IV SCH ×5 (01:01→23:54)
--- NOTE | 2016-08-22 01:08 | PN ---
DATE: 08/21/2016 SUBJECTIVE: The patient is resting, slightly propped up in bed, in no apparent respiratory distress. He is on very encephalopathic, tremulous, failed swallowing evaluation and aspirated all the consistencies. So we kept him n.p.o. He continued to be hypernatremic with a serum sodium of 154, continues to be on IV antibiotics for his healthcare-associated pneumonia and D5W for dehydration. PHYSICAL EXAMINATION: GENERAL: When I examined him this afternoon, he was resting slightly propped up, in no apparent distress, pale, but no jaundice, cyanosis, or thyromegaly. No jugular venous distention. No limb edema. VITAL SIGNS: His heart rate was 89, blood pressure was 121/63, temperature was 96.9, respiratory rate was 20, and oxygen saturation was 94% on 3 liters of oxygen by nasal cannula. The rest of clinical examination is unremarkable. LABORATORY DATA: This morning showed a serum sodium 154, potassium 4, chloride 119, bicarbonate 25, anion gap of 10, BUN 26, creatinine 1.3, estimated GFR was 53 mL per minute with blood glucose 111, calcium was 8.8. Total bilirubin, AST, ALT, alkaline phosphatase were normal. Total protein was 6.3, albumin was 1.5. His white cell count was 11,000, hemoglobin 9.6, hematocrit 29.6, MCV 91, and platelet count 205,000. His cultures are so far. His urine culture showed growth of more than 100,000 colony forming units per mL of gram-negative rods and his blood cultures still negative. ASSESSMENT: 1. Healthcare-associated pneumonia with left lower lobe infiltrate. 2. Dehydration. 3. Hypernatremia. 4. Severe protein-calorie malnutrition. 5. Severe dysphagia to all consistencies. PLAN: My plan is to continue with IV antibiotic, continue IV fluid and Diflucan with repeat his lab work, have consulted transition social worker to arrange a meeting with the family regarding goals of treatment that he might require a percutaneous endoscopic gastrostomy tube placement. CASSY ABBOTT MD DR: MINA/agustin JOB#: [id number] / [id number]
[2016-08-22 03:00] VITALS: BP 120/54
[2016-08-22 03:09] LABS: ALBUMIN 1.3 g/dL (3.4-5.0); ALBUMIN/GLOBULIN RATIO 0.3 (1.0-1.7); CALCIUM 8.4 mg/dL (8.5-10.1); CREATININE 1.4 mg/dL (0.7-1.3); GFR 48.6; POTASSIUM 3.7 mmol/L (3.5-5.1); TOTAL BILIRUBIN 1.2 mg/dL (0.2-1.0); TOTAL PROTEIN 5.3 g/dL (6.4-8.2)
[2016-08-22] MEDS: VANCOMYCIN PER PHARMACY MC PRN (03:26)
[2016-08-22 03:33] LABS: BASO % 0 % (0-3); EOS % 1 % (0-3); HEMATOCRIT 27.2 % (39.0-53.0); HEMOGLOBIN 8.9 g/dL (13.0-17.5); LYMPH # 1.6 x10^3/uL (1.0-4.8); LYMPH % 17 % (24-48); MEAN CORPUSCULAR HEMOGLOBIN 30 pg (25-35); MEAN CORPUSCULAR HGB CONC 33 g/dL (31-37); MEAN CORPUSCULAR VOLUME 91 fL (79-100); MONO % 12 % (0-9); NEUT % 70 % (31-73); PLATELET COUNT 191 x10^3/uL (140-400); WHITE BLOOD COUNT 9.4 x10^3/uL (4.0-11.0)
[2016-08-22] MEDS: VANCOMYCIN 1.5 GM in IV NORMAL SALINE 500ML BAG 500 ML IV SCH (03:47)
[2016-08-22 07:30] VITALS: BP 113/79
[2016-08-22] MEDS: SUCRALFATE 1 GM TABLET. PO SCH ×4 (07:30→21:00)
[2016-08-22] MEDS: INSULIN ASPART 300 UNITS/3 ML INSULN.PEN SQ SCH ×3 (08:00→17:00)
[2016-08-22] MEDS: POTASSIUM CHLORIDE 20 MEQ/15 ML ORAL LIQUID. PO SCH ×2 (08:00→17:00)
[2016-08-22] MEDS: FERROUS SULFATE 325 MG TABLET PO SCH ×2 (08:00→17:00)
[2016-08-22] MEDS: MINERAL OIL/PETROLATUM TOPICAL CREAM 113GM JAR. TP SCH ×2 (09:00→21:00)
[2016-08-22] MEDS: ACETAMINOPHEN 325 MG TABLET. PO SCH ×3 (09:00→21:00)
[2016-08-22] MEDS: FLUCONAZOLE 100 MG TABLET. PO SCH (09:00)
[2016-08-22] MEDS: FOLIC/VIT B COMP W-C (RENAL) TABLET. PO SCH (09:00)
[2016-08-22] MEDS: MAGNESIUM OXIDE 400 MG TABLET PO SCH ×3 (09:00→21:00)
[2016-08-22] MEDS: LACTOBACILLUS ACIDOPH & BULGAR 1 TABLET. PO SCH (09:00)
[2016-08-22] MEDS: RIVASTIGMINE 1.5 MG CAPSULE. PO SCH ×2 (09:00→21:00)
[2016-08-22] MEDS: ASCORBIC ACID 500 MG TABLET PO SCH ×2 (09:00→21:00)
[2016-08-22] MEDS: FAMOTIDINE 20 MG TABLET. PO SCH (09:00)
[2016-08-22] MEDS: TAMSULOSIN 0.4 MG CAP.ER.24H. PO SCH (09:00)
[2016-08-22] MEDS: APIXABAN 5 MG TABLET. PO SCH ×2 (09:00→21:00)
[2016-08-22] MEDS: ESCITALOPRAM 5 MG TABLET. PO SCH (09:00)
[2016-08-22] MEDS: METOPROLOL SUCC 24HR ER 25 MG TAB.ER.24H. PO SCH ×2 (09:00→21:00)
[2016-08-22] MEDS: CARBIDOPA/LEVODOPA 25/100MG TABLET PO SCH ×3 (09:00→21:00)
[2016-08-22 11:00] VITALS: BP 124/69
[2016-08-22] MEDS: ANTI-COAG MONITOR BY PHARMACY. MC PRN (13:14)
[2016-08-22 14:57] VITALS: BP 118/65
[2016-08-22 19:00] VITALS: BP 115/58
--- NOTE | 2016-08-22 19:31 | PN ---
DATE: 08/22/2016 SUBJECTIVE: The patient is resting, slightly propped up in bed, no apparent respiratory distress. He is lethargic, but arousable. Responds at times appropriately. We did check his swallowing evaluation yesterday and he failed all consistencies and we kept him n.p.o. He is now on IV D5W. He is also on multiple antibiotics for healthcare-associated pneumonia. 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 His lab work continued to show hypernatremia, although his sodium is slightly down from 155 to 152. PHYSICAL EXAMINATION: GENERAL: When I examined him this afternoon, he was pale. No jaundice, cyanosis, or thyromegaly. No jugular venous distention. No limb edema. VITAL SIGNS: Heart rate was 89, blood pressure was 124/69, temperature was 98.9, respiratory rate 22, and oxygen saturation was 96% on 3 liters of oxygen by nasal cannula. The rest of clinical examination is unremarkable, has not changed. His intake over the last 24 hours was 400, output was 650. LABORATORY DATA: His serum sodium 152, potassium 3.7, chloride 118, bicarbonate 25, anion gap of 9, BUN 23, creatinine 1.4, estimated GFR was 48 mL per minute. His glucose was 100, calcium was 8.4. Total bilirubin, AST, ALT, alkaline phosphatase were normal. His total protein was 5.3, albumin was 1.3. White cell count was 9400, hemoglobin 9, hematocrit 27, MCV 91, and platelet count of 191,000. Prothrombin time was 22.7, INR of 2.1. His urine culture grew 25,000 to 50,000 colony-forming units of multidrug-resistant Acinetobacter baumannii. ASSESSMENT AND PLAN: Dysphagia to all consistencies. The patient was kept n.p.o. Dehydration and marked hypernatremia, for which he is on D5W. Healthcare-associated pneumonia, for which he is on triple antibiotic. Benign prostatic hypertrophy, requiring indwelling Acosta catheter. Right upper extremity deep venous thrombosis, for which he was on apixaban. I have spoken with his son and he apparently did not want any feeding tube and would like to consider hospice house. ____ before and [facility] house did not qualify him. We will try again this time given that his condition has deteriorated further. CASSY ABBOTT MD DR: Mert JOB#: [id number] / [id number]
[2016-08-22] MEDS: MIRTAZAPINE 15 MG TABLET PO SCH (21:00)
[2016-08-22 22:55] VITALS: BP 181/92
[2016-08-23] MEDS: VANCOMYCIN 1.5 GM in IV NORMAL SALINE 500ML BAG 500 ML IV SCH (02:18)
[2016-08-23 02:49] VITALS: BP 107/69
[2016-08-23] MEDS: PIPERACILLIN/TAZOBACTAM 4.5 GM in IV NORMAL SALINE 100ML 100 ML IV SCH ×2 (05:35→11:17)
[2016-08-23 05:42] LABS: CREATININE 1.2 mg/dL (0.7-1.3); GFR 58.1
[2016-08-23 07:00] VITALS: BP 131/71
[2016-08-23] MEDS: SUCRALFATE 1 GM TABLET. PO SCH ×2 (07:30→11:30)
[2016-08-23] MEDS: IV DEXTROSE 5% 1,000 ML IV SCH (07:55)
[2016-08-23] MEDS: FERROUS SULFATE 325 MG TABLET PO SCH (08:00)
[2016-08-23] MEDS: INSULIN ASPART 300 UNITS/3 ML INSULN.PEN SQ SCH ×2 (08:00→12:00)
[2016-08-23] MEDS: POTASSIUM CHLORIDE 20 MEQ/15 ML ORAL LIQUID. PO SCH (08:00)
[2016-08-23] MEDS: ACETAMINOPHEN 325 MG TABLET. PO SCH ×2 (09:00→14:00)
[2016-08-23] MEDS: ASCORBIC ACID 500 MG TABLET PO SCH (09:00)
[2016-08-23] MEDS: CARBIDOPA/LEVODOPA 25/100MG TABLET PO SCH ×2 (09:00→14:00)
[2016-08-23] MEDS: MINERAL OIL/PETROLATUM TOPICAL CREAM 113GM JAR. TP SCH (09:00)
[2016-08-23] MEDS: TAMSULOSIN 0.4 MG CAP.ER.24H. PO SCH (09:00)
[2016-08-23] MEDS: FLUCONAZOLE 100 MG TABLET. PO SCH (09:00)
[2016-08-23] MEDS: APIXABAN 5 MG TABLET. PO SCH (09:00)
[2016-08-23] MEDS: FAMOTIDINE 20 MG TABLET. PO SCH (09:00)
[2016-08-23] MEDS: RIVASTIGMINE 1.5 MG CAPSULE. PO SCH (09:00)
[2016-08-23] MEDS: FOLIC/VIT B COMP W-C (RENAL) TABLET. PO SCH (09:00)
[2016-08-23] MEDS: LACTOBACILLUS ACIDOPH & BULGAR 1 TABLET. PO SCH (09:00)
[2016-08-23] MEDS: ESCITALOPRAM 5 MG TABLET. PO SCH (09:00)
[2016-08-23] MEDS: MAGNESIUM OXIDE 400 MG TABLET PO SCH ×2 (09:00→14:00)
[2016-08-23] MEDS: METOPROLOL SUCC 24HR ER 25 MG TAB.ER.24H. PO SCH (09:00)
[2016-08-23 11:00] VITALS: BP 110/69
[2016-08-23] MEDS: ANTI-COAG MONITOR BY PHARMACY. MC PRN (11:54)
[2016-08-23] MEDS: VANCOMYCIN PER PHARMACY MC PRN (11:55)
--- NOTE | 2016-08-24 14:37 | DS ---
DATE OF DISCHARGE: 08/23/2016 HOSPITAL COURSE: The patient is an 81-year-old male patient, a resident at [facility] who was admitted yet again with another aspiration pneumonia, altered mental status and hypoxic, respiratory failure. We did start him on triple antibiotics for healthcare-associated pneumonia. He was also dehydrated and markedly hypernatremic with serum sodium that was extremely high, 155. We started him on D5W. He was on a pureed diet with nectar thickened liquids; however, he was noted to be aspirating, so we consulted the Speech and Language Pathologist, but unfortunately the patient aspirates all consistencies and he was kept n.p.o. We have a lengthy discussion with the family regarding further management and whether they want to be aggressive and consider feeding tube or hospice and basically the family decided on hospice. He was evaluated by the [facility] and was accepted and was transferred there for end of life care. OBJECTIVE: GENERAL: On the day of discharge, the patient was resting slightly propped up in bed, very confused. He was pale, no jaundice, cyanosis, or thyromegaly. No jugular venous distension. No limb edema. VITAL SIGNS: Heart rate was 104, blood pressure was 110/69, temperature was 97.5, respiratory rate was 16, and oxygen saturation was 98% on 3 liters of oxygen. HEAD, EYES, EARS, NOSE AND THROAT: Normocephalic, atraumatic. NECK: Supple. HEART: Showed normal first and second sounds. No gallop, rub or murmur. CHEST: Shows central trachea, equal bilateral expansion, air entry, expansion with crepitation mostly in the left side posteriorly. I could not appreciate any rhonchi. ABDOMEN: Distended, soft, nontender. NEUROLOGIC: He was very confused, disoriented; however, all his cranial nerves are intact. He moves his upper extremities to much good extent than his lower extremities. He has severe osteoarthritis of both knee joints and right hip joint. 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 He has also benign prostatic hypertrophy requiring indwelling Acosta catheter. LABORATORY DATA: His lab work showed that his serum sodium continues to be high at 149, potassium 3, chloride 116, bicarbonate 22, anion gap of 11, BUN 17, creatinine 1.2, estimated GFR was 58 mL per minute. His glucose was 79, calcium was 8. His white cell count was 9400, hemoglobin 9, hematocrit 27, MCV 91, and platelet count of 191,000. DISCHARGE MEDICATIONS: He was discharged to [facility] to continue on Roxanol 20 mg/mL to take 0.25 to 1 mL ____ subcutaneously every hour as needed for pain or shortness of breath. Ativan 2 mg per mL to take 0.25 to 1 mL that is 0.5-2 mg every hour as needed for anxiety. FINAL DISCHARGE DIAGNOSES: 1. Severe dysphagia with recurrent aspiration pneumonia and acute hypoxic respiratory failure. Video swallowing evaluation showed that the patient has dysphagia to all consistencies. 2. Dehydration. 3. Marked hypernatremia. 4. Healthcare-associated pneumonia. 5. Benign prostatic hypertrophy. The patient required indwelling Acosta catheter. 6. Right upper extremity deep vein thrombosis, for which he was on apixaban. 7. Hypothyroidism. 8. Diastolic congestive heart failure. 9. Atrial fibrillation. 10. Sick sinus syndrome, status post permanent pacemaker. CASSY ABBOTT MD DR: MINA/agustin JOB#: [id number] / [id number]
== END 2016-08-23 18:22 | disposition hospice, inpatient (51) | DRG 177 ==
LOC: ER 00:28 → 5 NORTH 01:30
PROVIDERS: ADMIT Internal Medicine; ATTEND Internal Medicine
DX: J69.0 Pneumonitis due to inhalation of food and vomit (principal); J96.01 Acute respiratory failure with hypoxia; E43 Unspecified severe protein-calorie malnutrition; L89.304 Pressure ulcer of unspecified buttock, stage 4; E87.0 Hyperosmolality and hypernatremia; I50.32 Chronic diastolic (congestive) heart failure; E03.9 Hypothyroidism, unspecified; E11.22 Type 2 diabetes mellitus with diabetic chronic kidney disease; E78.00 Pure hypercholesterolemia, unspecified; E78.5 Hyperlipidemia, unspecified; E86.0 Dehydration; F03.90 Unspecified dementia, unspecified severity, without behavioral disturbance, psychotic disturbance, mood disturbance, and anxiety; I12.9 Hypertensive chronic kidney disease with stage 1 through stage 4 chronic kidney disease, or unspecified chronic kidney disease; I48.91 Unspecified atrial fibrillation; J44.9 Chronic obstructive pulmonary disease, unspecified; L89.329 Pressure ulcer of left buttock, unspecified stage; M19.90 Unspecified osteoarthritis, unspecified site; N18.9 Chronic kidney disease, unspecified; N40.0 Benign prostatic hyperplasia without lower urinary tract symptoms; Y95 Nosocomial condition; Z16.24 Resistance to multiple antibiotics; Z85.46 Personal history of malignant neoplasm of prostate; Z86.718 Personal history of other venous thrombosis and embolism; Z87.891 Personal history of nicotine dependence; Z95.0 Presence of cardiac pacemaker; Z98.41 Cataract extraction status, right eye; Z98.42 Cataract extraction status, left eye; Z68.28 Body mass index [BMI] 28.0-28.9, adult; Z90.49 Acquired absence of other specified parts of digestive tract; R13.10 Dysphagia, unspecified
CPT/HCPCS: 36415; 71010; 71250; 80048; 80053; 80076; 80202; 81001; 82947; 83880; 84443; 84484; 85027; 85610; 85730; 87040; 87086; 87186; 87641; 93005; J1815; J1956; J2543; J3370; J7040; 92610; 97605; 99285-25